=== PATIENT | male | born 1935 | race Caucasian/White ===

== ENCOUNTER → 2023-09-24 10:01 | Outpatient (REF) | payer OTHER, SELFPAY | LOC: HWRCS 10:01 | PROVIDERS: ATTENDING PHYSICIAN Internal Medicine | DX: I10 Essential (primary) hypertension (principal); I25.810 Atherosclerosis of coronary artery bypass graft(s) without angina pectoris; R01.1 Cardiac murmur, unspecified | CPT/HCPCS: 93306 ==

== ENCOUNTER 2024-02-20 15:39 | Inpatient (IN) | payer OTHER, SELFPAY ==
[2024-02-20] VITALS (13 sets, daily range): BP systolic 84–130; BP diastolic 51–75; BMI 26.5
--- NOTE | 2024-02-20 11:08 | ED.GENMED ---
History of Present Illness
General
Chief Complaint: Fever
Source: family
Exam Limitations: dementia
Time Seen by Provider: 02/20/24 10:53
History of Present Illness
History of Present Illness:
88yoM with a history of coronary artery disease, prostate cancer, remote history of colon cancer s/p colectomy with ileostomy, and dementia presenting with his family for evaluation of altered mental status. Patient was visiting his son 1 month ago
in [place]. He was seen at a hospital in [place] and was diagnosed with COVID at that time. During his hospitalization, a Alcocer catheter was placed for urinary retention. The catheter has been in place since that time. He was seen by urology
(Dr. Genao) yesterday and had his Alcocer catheter exchanged. Family states that he started to have nasal congestion yesterday evening as well as several episodes of shaking. Patient also seemed less responsive and more fatigued than usual.
Family also reports that he has been having bleeding from his penis since his catheter was exchanged. Temperature is 100.5 on arrival.
Past History
Past History
ED Past Medical History: CAD, Cancer (Bowel), GERD, HTN, Hypercholesterolemia, DE and Other (Left foot drop, lumbar DJD, SBO, Kidney stones, Ulcerative colitis then CA)
ED Past Surgical History: Bowel resection (Colon removed with ileostomy), Cardiac (CABG, PTCA with stents) and Other (Total colectomy due to ulcerative colitis)
Social History
Tobacco: Former smoker
Alcohol: None
Drug: None
Personal:
Living: with family
Employment: Retired
Family History
Family History: Other (Noncontributory)
Phy Exam
Physical Exam
Physical Exam:
Appears fatigued, keeps eye closed throughout majority of exam, non-toxic
General Physical Exam
General Presentation: no apparent distress
General Skin: warm and dry
General Habitus: elderly
ENT Exam
ENT Exam: normocephalic
Cardiovascular Exam
Cardiovascular Exam: regular rate/rhythm
Pulmonary Exam
Pulmonary Exam: lungs clear, no respiratory distress, no crackles and no wheezing
Gastrointestinal Exam
Gastrointestinal Exam: non tender, soft and non distended
External Findings: ileostomy
Genitourinary Exam Male
Exam Male: other (Alcocer catheter in place draining dark yellow urine. Small amount of bleeding noted at urethral meatus. )
Neurological Exam
Neurological Exam: alert and other (Oriented to person only)
[place] Coma Scale
Eye Opening: Spontaneous
Verbal Response: Confused
Motor Response: Obeys Commands
GCS Total Score: 14
Skin Exam
Skin Exam: normal color and warm/dry
Course
Orders/Labs/Results
Orders:
Orders
02/20/24 11:12
Electrocardiogram (*1) Urgent
Reason for Study: Fatigue / Weakness
EKG- Treatment ONCE
02/20/24 11:13
0.9% Sodium Chloride 500 ml [Nss] 500 ml IV BOLUS
CR Chest - 2 Views Urgent
Comment:
Reason For Exam: Fever
02/20/24 11:20
Complete Blood Count/With Diff Urgent
Lactate Level [Lactic Acid] Urgent
Influenza A+B Rapid Molecular Urgent
DELISA Source: Nasal Swab
Specimen Description:
02/20/24 11:21
Comprehensive Metabolic Panel Urgent
PTT Urgent
Prothrombin Time Urgent
Troponin I Urgent
Blood Culture Routine
DELISA Source: Blood/Venous
Specimen Description:
Blood Culture Urgent
DELISA Source: Blood/Venous
Specimen Description:
02/20/24 11:23
COVID-19 Antigen Urgent
Source: Nasal Swab
Urinalysis Reflex To Culture Urgent
Date Specimen was Collected: 02/20/24
Time Specimen was Collected: 11:21
Urine Microscopic Reflex Cult Urgent
Urine Culture Urgent
DELISA Source: U
Specimen Description:
Date Specimen was Collected: 02/20/24
Time Specimen was Collected: 11:21
02/20/24 12:10
Acetaminophen [Tylenol] 650 mg PO NOW STA
CefTRIAXone [Rocephin] 2,000 mg IV NOW STA
02/20/24 14:02
Troponin I Urgent
02/20/24 14:09
UROLOGY CONSULT Routine
Consulting Provider: Qamar Genao
Was physician already notified: Yes
02/20/24 14:58
Electrocardiogram (*1) Urgent
Reason for Study: Fatigue / Weakness
02/20/24 14:59
EKG- Treatment ONCE
02/20/24 15:02
Admit/Transfer Patient As Directed
Co-Sign Provider:
Level of Care: Inpatient admission
Assign to:: IMU- Intermediate Care
Physician / Group: Hospitalist
Diagnosis: UTI, Pneumonia
Reason for Hospitalization: UTI, pneumonia
Expected length of stay greater than two midnights?: Yes
ELOS- Estimated Length of Stay in days: 3
I certify the patient meets the requirements for IP care: Yes
02/20/24 15:07
PRN Pain Medication Management As Directed
May give lesser potent ordered pain med per pt: Yes
preference::
Protocol:: Medication orders for pain may be administered in a
manner that supports deferring to patient preference
when the pt is:
- Requesting an ordered lesser potent pain medication.
Least to most potent pain medications are defined
as: acetaminophen < NSAID < tramadol < opioids
(morphine, oxycodone, hydromorphone).
- Requesting a lesser dose of the same medication IF
ORDERED.
- Requesting a less intrusive route of administration
if both routes are prescribed by the provider (PO <
IV).
Abnormal Lab Results
1002/20/24 02/20/24
11:20 11:21 11:23
RBC 4.16 L 10^6/uL
(4.70-6.10)
MCH 32.2 H pg
(27.0-31.0)
RDW 15.2 H %
(11.5-14.5)
MPV 10.7 H fL
(7.4-10.4)
Abs Immat Gran (auto) 0.1 H 10^3/uL
(0-0.05)
Absolute Neuts (auto) 9.4 H 10^3/uL
(1.4-6.5)
Absolute Lymphs (auto) 0.3 L 10^3/uL
(1.2-3.4)
Immature Gran % 0.8 H %
(0-0.5)
Neutrophils % 89.7 H %
(42.2-75.2)
Lymphocytes % 3.2 L %
(20.5-51.1)
PT 15.3 H Sec
(11.4-14.6)
Chloride 109 H mmol/L
(98-107)
Carbon Dioxide 21 L mmol/L
(22-30)
BUN 31 H mg/dl
(9-20)
Glucose 124 H mg/dl
(70-99)
Total Bilirubin 1.4 H mg/dl
(0.2-1.3)
Troponin I 0.192 H* ng/ml
Ur Occult Blood Reflex 4+ A
(Negative)
Urine Nitrite (Reflex) Positive A
(Negative)
Urine Bilirubin 1+ A
(Negative)
Leukocyte Esterase Rfl 2+ A
(Negative)
Urine RBC 50-60 A /HPF
(0-2)
Urine WBC (Reflex) 11-15 A /HPF
(0-5)
Urine Bacteria (Reflex) Many A
(Negative)
Urine Albumin (Reflex) 2+ A
(Neg - Trace)
02/20/24
14:02
RBC
MCH
RDW
MPV
Abs Immat Gran (auto)
Absolute Neuts (auto)
Absolute Lymphs (auto)
Immature Gran %
Neutrophils %
Lymphocytes %
PT
Chloride
Carbon Dioxide
BUN
Glucose
Total Bilirubin
Troponin I 0.224 H* ng/ml
Ur Occult Blood Reflex
Urine Nitrite (Reflex)
Urine Bilirubin
Leukocyte Esterase Rfl
Urine RBC
Urine WBC (Reflex)
Urine Bacteria (Reflex)
Urine Albumin (Reflex)
02/20/24 11:20
02/20/24 11:21
Vital Signs
Initial and Last Documented VS:
Initial Vital Signs
Temp Pulse Resp BP Pulse Ox
100.5 F H 82 18 110/61 96
02/20/24 10:44 02/20/24 10:44 02/20/24 10:44 02/20/24 10:44 02/20/24 10:44
Last Documented Vital Signs
Temp Pulse Resp BP Pulse Ox
98.1 F 71 18 109/58 97
02/20/24 17:25 02/20/24 17:00 02/20/24 10:44 02/20/24 17:00 02/20/24 16:00
MDM/Problems Addressed
Differential Diagnosis Includes:
88yoM here with confusion, fatigue, rigors, and fever. Started yesterday after a Alcocer catheter exchange. Hx of dementia. Temp 100.5 on arrival. Remainder of vitals stable. He appears fatigued but is non-toxic. Differential diagnosis includes but is
not limited to: UTI, pyelonephritis, sepsis, pneumonia, viral illness
Initial ED plan: Check septic workup including blood cultures, lactate, COVID/flu swab, UA, and CXR. Tylenol and IV fluid bolus.
*EKG
Interpreted by ED Provider?: Yes
EKG Intrepretation Date: 02/20/24
Heart Rate: 78
Rate: normal
Rhythm: sinus
[place]: normal axis
Interval: normal interval
QRS Pattern: normal QRS
Ischemia: no ischemia
*Critical Care Note
Total Time (30-74mins, 75-104mins- exclusive of procedures): Not Applicable
Update Note
Update Note:
White count normal with left shift noted. Lactate WNL. UA is nitrite positive with 50-60 WBC and many bacteria. Troponin 0.192 although there are no ischemic changes on EKG. CXR also shows pneumonia. Patient given IV Rocephin and admitted for
further management.
ED Attending Note
-
Portions of this chart may have been created with voice recognition software.� Occasional wrong word or��sound alike� substitutions may have occurred due to the inherent limitations of voice recognition software.
Discharge Plan
Departure
Patient Disposition: Admit
Date of Disposition: 02/20/24
Time of Disposition: 13:15
Presentation/result/management discussed w/ accepting MD/DO: Hospitalist
Discharge Problem:
Urinary tract infection, Elevated troponin, Acute encephalopathy
Interventions
Interventions:
*Risk Screen - Suicide Last Done: 02/20/24 10:45
*General Assessment Last Done: 02/20/24 10:45
*Neglect/Abuse Screening Last Done: 02/20/24 10:45
*ED COVID-19 Vaccine History Last Done: 02/20/24 10:58
*Nursing Disposition Last Done: 02/20/24 17:18
ED-Skin Assessment Last Done: 02/20/24 12:36
ED- Pulmonary Assessment Last Done: 02/20/24 17:18
ED- Neurological Assessment Last Done: 02/20/24 10:58
ED- Cardiac Assessment Last Done: 02/20/24 17:18
Discharge Date and Time
Discharge Date/Time: 02/20/24 17:00
[2024-02-20 11:47] LABS: % Basophils 0.5 % (0-2); % Eosinophils 0.1 % (0-6); % Immature Granulocytes 0.8 % (0-0.5); % Lymphocytes 3.2 % (20.5-51.1); % Monocytes 5.7 % (1.7-9.3); % Neutrophils 89.7 % (42.2-75.2); Absolute Basophils 0.1 10^3/uL (0-0.2); Absolute Immature Granulocytes 0.1 10^3/uL (0-0.05); Absolute Lymphocytes 0.3 10^3/uL (1.2-3.4); Absolute Monocytes 0.6 10^3/uL (0.1-0.6); Absolute Neutrophils 9.4 10^3/uL (1.4-6.5); Hemoglobin 13.4 g/dL (13.0-18.0); Mean Corp Hgb Conc. 34.4 g/dL (33.0-37.0); Mean Corpuscular Hgb 32.2 pg (27.0-31.0); Mean Corpuscular Volume 93.8 fL (80.0-94.0); Mean Platelet Volume 10.7 fL (7.4-10.4); Nucleated Red Blood Cells % 0 % (-); Platelet Count 143 10^3/uL (130-400); Red Blood Cell Count 4.16 10^6/uL (4.70-6.10); Red Cell Dist. Width 15.2 % (11.5-14.5); White Blood Cell Count 10.4 10^3/uL (4.8-10.8)
[2024-02-20] MEDS: NSS 500 IV ×2 (11:47→20:17)
[2024-02-20 12:01] LABS: ALT (SGPT) 17 U/L (0-50); AST (SGOT) 28 U/L (17-59); Albumin 3.9 g/dl (3.5-5.0); Alkaline Phosphatase 46 U/L (38-126); Blood Urea Nitrogen 31 mg/dl (9-20); Calcium 9.4 mg/dl (8.4-10.2); Carbon Dioxide 21 mmol/L (22-30); Chloride 109 mmol/L (98-107); Estimated Creatinine Clearance 34 ml/min; Glucose 124 mg/dl (70-99); Potassium 4.7 mmol/L (3.5-5.1); Sodium 142 mmol/L (135-145); Total Bilirubin 1.4 mg/dl (0.2-1.3); Total Protein 6.8 g/dl (6.3-8.2); eGFR 52.84
[2024-02-20 12:01] LABS: Lactic Acid 1.4 mmol/L (0.7-2.0)
[2024-02-20 12:02] LABS: PT 15.3 Sec (11.4-14.6)
[2024-02-20 12:03] LABS: Urine Albumin 2+ (Neg - Trace); Urine Bilirubin 1+ (Negative); Urine Character Cloudy (Clear); Urine Glucose Negative (Negative); Urine Ketone Negative (Negative); Urine Leukocyte 2+ (Negative); Urine Nitrite Positive (Negative); Urine Occult Blood 4+ (Negative); Urine Urobilinogen Negative (Neg - 1+)
[2024-02-20 12:03] LABS: APTT 28.9 Sec (23.4-35.0)
[2024-02-20 12:12] LABS: Urine Bacteria Many (Negative); Urine Red Blood Cell 50-60 /HPF (0-2)
[2024-02-20 12:17] LABS: Troponin I 0.192 ng/ml
[2024-02-20 12:24] LABS: COVID-19 Antigen Negative (Negative)
[2024-02-20] MEDS: TYLENOL 650 MG PO (12:28)
[2024-02-20] MEDS: ROCEPHIN 2000 MG IV (12:29)
[2024-02-20 14:57] LABS: Troponin I 0.224 ng/ml
--- NOTE | 2024-02-20 16:42 | W.PN.URO.CBU ---
Today's Communication / Plan
-
per hospitalist
Assessment / Plan
-
urosepsis melvin ro check blood urine cxs broad spectrum iv abs until can target pathogen
Diagnosis
-
Date of Service: February 20, 2024
-
Patient Diagnosis:probable urosepsis in pt with urinary retention and prostae cance and bph had instrumentationyestrday fevr confusion 12 hours later
Post Op Day:
Subjective
-
feels better now
Objective
-
Vital Signs
Temp Pulse Resp BP Pulse Ox
98.7 F 63 18 110/58 96
02/20/24 14:04 02/20/24 15:56 02/20/24 10:44 02/20/24 15:56 02/20/24 15:56
Laboratory Results
02/20/24 11:20
02/20/24 11:21
Review of Systems
-
Unable to obtain full review of systems at this time due to: Dementia
Constitutional: Fever, Fatigue, Night Sweats and Chills
: Difficulty Voiding and Bleeding
Physical Exam
-
General - well developed, well nourished, no acute distress
Chest - clear bilaterally
Abdomen - soft, non-tender, positive bowel sounds, no CVAT, no incisional pain or distentionstoma pink
Genitalia - normal
Rectal -ove sewn
Skin - warm & dry with no rash
Neuro - AOx3, no motor deficits
Extremities - no clubbing, no cyanosis, no edema
Incision - clean, dry
Dressing - clean, dry, intact
Care Review
Data Reviewed
Discussed with: Hospitalist, Nursing and Family
--- NOTE | 2024-02-20 16:54 | HPS.HSE ---
Addendum entered and electronically signed by Luis Angel Calles MD 02/20/24 21:41:
Attending Addendum-
I performed a history and physical exam of the patient and discussed his management with the resident. I reviewed the resident's note and agree with the documented findings and plan of care CC/HPI- Patient presents with CIMS fatigue fevers and
chills. Had Ro exchange the day prior. Patient is a poor historian due to dementia and dysarthria. Seen with present. States he is not himself and more fatigued than usual. [place] noted blood @ peinile opening. Full 12 point ROS reviewed and
negative except as documented Exam- vitals reviewed in EMR GEN- NAD heart RRR lungs LLL rhonchi abd soft ostomy present LE no edema ro in place with bloody urine.
Plan:
# Sepsis secondary to UTI after recent Ro exchange and CAP/LLL
- cont Rocephin and doxy - dual coverage
- check lactate
- fluid resuscitation 30ml/kg maintain MAP>65 bolus x 1
- cont IVF
- blood cx urine cx
- admit to IMU
# Acute Delirium
- from sepsis
- treat infection
- monitor closely
# NIMI
- EKG personally reviewed and compared to previous- no ST changes occasional PVCs
- from sepsis
- trend troponin
- recent echo 10/11 ef 60-65%
# Urinary retention secondary to BPH
- cont flomax
- cont Ro for now
- TOV when more ambulatory
- uro on board
# Hematuria
- uro on board
- cont to trend h and h
# Severe Alzheimer Dementia
- cont exelon
- speech eval
# Chrons with colostomy
- ostomy care
# CAD-
- CABG x 2 + stents
- cont asa for now
# H/O Prostate ca
- cont bicalutamide
# Gout
- cont allopurinol
# CKD 3a
- @ baseline 1.3
- repeat BMP in am
- avoid NT agents
# recent covid
- monitor for LCS
CODE- limited DNI only
Dispo eventual DC home with - would benefit from unit/LTC
Time spent coordinating care, review of plan of care with resident, personally reviewed previous records in EMR, med rec, labs, radiology, d/w nursing, family/ �- 79 mins
Original Note:
Family Physician
-
[facility] Physician: [facility]
Chief Complaint
-
Altered mental status, fever, fatigue
History of Present Illness
88 year old male with history of advanced dementia, CAD s/p CABG x 2 (7 stents), prostate cancer, CKD, crohn's, colon cancer s/p colectomy+ileostomy, who presents to the ED with altered mental status, fever, and rigors.
Yesterday, patient had a ro exchanged by Dr. Genao of urology, with noted blood around the urethra from trauma of ro insertion. Patient is limited in speech by dementia, but per , he complained about feeling unwell yesterday evening.
Today, she noted he was more sleepy than usual, and did not respond to conversation or direction. She noted 'fever' to 99.6, and called EMS.
Of note, patient was away at [place] with his family for a few weeks, returned a few days ago. While he was away, he was hospitalized for COVID (whole family get sick), and had urinary retention for which ro was inserted. He pulled his ro out
(with significant trama bruising to penis) and was transferred to where a new ro was successfully inserted. This ro was exchanged by Dr. Genao yesterday after being in for 30 days.
Prior to his recent hospitalization for COVID, he ambulated independently, but has used a walker since he was discharged.
reports runny nose and cough initially productive of greenish sputum, but now sputum is clear.
On arrival to the ED, he was febrile 100.5, but otherwise hemodynamically stable. Ceftriaxone was started in the ED and Tylenol was administered. While in the ED, his BP dropped to 84/51.
Medical History
Past Medical History
Past Medical History: Reports CAD, Cancer (prostate, colon), Dementia and Other (CKD, urinary retention, chronic ro, crohn's, )
Past Surgical History: Reports Bowel Resection (colectomy) and Other (hernia repair, ileostomy, CABG x 2)
Social History
Unable to obtain full social history at this time due to: Dementia
Tobacco: Former Smoker
Alcohol: None
Drug: None
Personal:
Living: With Family
Employment: Retired
Family History
Family History: Not pertinent
Allergies / Home Medications
Allergies reflects when Allergies were last updated in [facility].
Home Medications with original date entered in [facility]
Allergy/Medication List:
Allergies
Allergy/AdvReac Type Severity Reaction Status Date / Time
latex Allergy Itching Verified 02/20/24 10:45
mesalamine [From Asacol] Allergy severe Verified 02/20/24 10:45
stomach
pain
morphine Allergy Hallucinati Verified 02/20/24 10:45
ons
oxycodone HCl [From Percocet] Allergy NIGHTMARE Verified 02/20/24 10:45
DREAMS
Penicillins Allergy Rash Verified 02/20/24 10:45
pravastatin sodium Allergy INCREASED Verified 02/20/24 10:45
[From Pravachol] LFT
telithromycin [From KETEK] Allergy led to Verified 02/20/24 10:45
ulcerative
colitis
Home Medications
aspirin 81 mg tablet,delayed release 81 mg PO DAILY Blood Clot Prevention/Tx 10/19/09
tamsulosin 0.4 mg capsule 0.8 mg PO HS Urinary Issue 11/15/18
allopurinol 300 mg tablet 300 mg PO DAILY gout 02/20/24
bicalutamide 50 mg tablet 50 mg PO DAILY prostate cancer 02/20/24
rivastigmine 9.5 mg/24 hour transdermal patch 9.5 mg transdermal HS memory/cognition 02/20/24
Review of Systems
-
Unable to obtain full review of systems at this time due to: Dementia
History Source: Family
Constitutional: Reports Fever
EENT: Reports Runny Nose
Respiratory: Reports Cough
Psych: Reports Dementia
Physical Exam
Vital Signs
Vital Signs
Temp Pulse Resp BP Pulse Ox
98.7 F 63 18 110/58 96
02/20/24 14:04 02/20/24 15:56 02/20/24 10:44 02/20/24 15:56 02/20/24 15:56
Physical Exam
General: Well Developed, No Apparent Distress and Comfortable
HEENT: NormoCephalic and Anicteric; No Moist mucous membranes
Respiratory: Clear and Non Labored Respirations; No Wheezes, Rales, Rhonchi or Crackles
Cardiac: S1/S2 and Regular Rhythm; No Murmur, Rub or Calf Tenderness
GI: Soft, Non Tender, Non Distended, Normal Bowel Sounds and Ostomy
Genito-urinary: Bloody Urine and Ro
Musculoskeletal: No Clubbing, No Cyanosis, Edema, Left Lower Extremity and Edema, Right Lower Extremity
Skin: Warm and Dry
Neuro: Awake, Alert and Oriented (to person only )
Psych: Calm and Confused
Laboratory Results
-
02/20/24 11:20
02/20/24 11:21
Laboratory Results
PT 15.3 Sec (11.4-14.6) H 02/20/24 11:21
INR 1.20 02/20/24 11:21
APTT 28.9 Sec (23.4-35.0) 02/20/24 11:21
Lactic Acid 1.4 mmol/L (0.7-2.0) 02/20/24 11:20
Total Bilirubin 1.4 mg/dl (0.2-1.3) H 02/20/24 11:21
AST 28 U/L (17-59) 02/20/24 11:21
ALT 17 U/L (0-50) 02/20/24 11:21
Alkaline Phosphatase 46 U/L (38-126) 02/20/24 11:21
Troponin I 0.224 ng/ml H* 02/20/24 14:02
Impression/Plan
-
IMPRESSION: 88 year old male with advanced dementia, CAD s/p CABG x 2 (7 stents), prostate cancer, CKD, crohn's, colon cancer s/p colectomy+ileostomy who presents with sepsis.
PLAN:
Severe sepsis:
Secondary to catheter-associated UTI and community acquired pneumonia
WBC 10.4 with left shift. Febrile 100.5. Elevated troponin with normal EKG. Hypotension.
CXR: LLL pneumonia
Unrinalysis positive for UTI, chronic ro use. Recent ro exchange
Lactate 1.4
- IVF resuscitation
- Continue Ceftriaxone from ED. Add Doxycycline.
- Blood culture x 2 and urine culture pending
- Admit to IMU
Community acquired pneumonia:
- Continue Ceftriaxone and Doxycycline
Catheter associated UTI:
Urinalysis positive for UTI
- Chronic ro for urinary retention
- New ro exchange one day [employer]
- Continue Ceftriaxone. No need to replace new ro
- Appreciate urology recs
- Urinary Cx pending
Toxic metabolic encephalopathy:
Altered mental status secondary to severe sepsis
- Treat as above
- Monitor mental status
Non-ischemic myocardial injury:
Elevated troponin with normal EKG
Trops 0.192 -> 0.224
- Repeat EKG
- Trend trops
Urinary retention:
Hx of prostate cancer
- Chronic ro
- Continue ro
- Continue Tamsulosin
CAD:
Status post CABG x 2
- Continue Asp 81mg
CKD:
- Avoid nephrotoxic agents
Dementia:
Advanced
- Continue Rivastigmine
Prostate Cancer:
- Continue Bicalutamide
Hx of gout:
- Continue Allopurinol
DVT PPX: Heparin SQ
Code status: Limited: Do not Intubate.
[2024-02-20] MEDS: VIBRAMYCIN 100 MG PO (20:59)
[2024-02-20] MEDS: HEPARIN 5000 UNITS SC (20:59)
[2024-02-20] MEDS: FLOMAX PO ×2 (20:59→21:23)
[2024-02-20] MEDS: MUCINEX 600 MG PO (20:59)
[2024-02-20] MEDS: EXELON PATCH 9.5 MG TRANSDERM (20:59)
[2024-02-20 22:24] LABS: Troponin I 0.164 ng/ml
[2024-02-20] MEDS: NSS 1000 IV (22:36)
[2024-02-21] VITALS (10 sets, daily range): BP systolic 98–138; BP diastolic 51–102; PULSE 69–70; O2SAT 95–96
[2024-02-21 04:06] LABS: % Basophils 0.8 % (0-2); % Eosinophils 0.7 % (0-6); % Immature Granulocytes 0.7 % (0-0.5); % Lymphocytes 8.3 % (20.5-51.1); % Monocytes 10.5 % (1.7-9.3); Absolute Basophils 0.1 10^3/uL (0-0.2); Absolute Lymphocytes 0.5 10^3/uL (1.2-3.4); Absolute Monocytes 0.6 10^3/uL (0.1-0.6); Absolute Neutrophils 4.7 10^3/uL (1.4-6.5); Hematocrit 34.6 % (39.0-52.0); Mean Corp Hgb Conc. 34.7 g/dL (33.0-37.0); Mean Corpuscular Hgb 32.3 pg (27.0-31.0); Mean Corpuscular Volume 93.3 fL (80.0-94.0); Mean Platelet Volume 10.7 fL (7.4-10.4); Nucleated Red Blood Cells % 0 % (-); Platelet Count 123 10^3/uL (130-400); Red Blood Cell Count 3.71 10^6/uL (4.70-6.10); Red Cell Dist. Width 15.1 % (11.5-14.5); White Blood Cell Count 5.9 10^3/uL (4.8-10.8)
[2024-02-21 04:16] LABS: ALT (SGPT) 19 U/L (0-50); AST (SGOT) 30 U/L (17-59); Albumin 3.1 g/dl (3.5-5.0); Alkaline Phosphatase 48 U/L (38-126); Blood Urea Nitrogen 27 mg/dl (9-20); Calcium 8.9 mg/dl (8.4-10.2); Carbon Dioxide 18 mmol/L (22-30); Chloride 111 mmol/L (98-107); Estimated Creatinine Clearance 37 ml/min; Glucose 107 mg/dl (70-99); Potassium 4.1 mmol/L (3.5-5.1); Sodium 140 mmol/L (135-145); Total Bilirubin 0.6 mg/dl (0.2-1.3); Total Protein 5.7 g/dl (6.3-8.2); eGFR 58.17
--- NOTE | 2024-02-21 06:03 | PTCARENOTE ---
No acute events overnight. Refused evening flomax despite family and nurse attempts to convince and educate. Remains on IVF. afebrile. Folely draining anabel blood tinged urine.
[2024-02-21] MEDS: HEPARIN 5000 UNITS SC ×2 (08:09→21:44)
[2024-02-21] MEDS: NSS 1000 IV ×2 (08:09→21:44)
[2024-02-21] MEDS: MUCINEX PO ×3 (08:09→21:47)
[2024-02-21] MEDS: VIBRAMYCIN 100 MG PO (08:09)
[2024-02-21] MEDS: CASODEX PO ×2 (08:09→08:24)
[2024-02-21] MEDS: ASPIR LOW (ENTERIC COATED) PO ×2 (08:09→08:24)
[2024-02-21] MEDS: ZYLOPRIM 300 MG PO (08:09)
--- NOTE | 2024-02-21 08:31 | VNURNOTE ---
Chart reviewed. Patient is current with [facility] nursing, PT, OT, CHANGE CONTROL MANAGER. Will continue to follow hospital course and DC plans.
--- NOTE | 2024-02-21 08:55 | W.PN.HOSP.TC ---
Addendum entered and electronically signed by Luis Angel Calles MD 02/21/24 21:37:
Attending Addendum-
I saw and evaluated the patient. I reviewed the resident�s note and agree with findings and plan as documented in the resident�s note. Sub: See without present. 'why are you asking me questions? who are you?' .seem agitated. Full 12 point ROS
reviewed and negative except as documented Exam- vitals reviewed in EMR GEN- NAD heart RRR lungs LLL rhonchi abd soft ostomy present LE no edema ro in place with dark urine.
Plan:
# Sepsis secondary to UTI after recent Ro exchange and CAP/LLL
- cont Rocephin and doxy - dual coverage
- lactate wnl
- cont IVF
- blood cx-P
- urine cx- GNB awaiting speciation
- transfer to tele
# Acute Delirium
- seems to be improving
- from sepsis
- treat infection
- monitor closely
# NIMI
- EKG personally reviewed and compared to previous- no ST changes occasional PVCs
- from sepsis
- troponin trending down
- recent echo 10/11 ef 60-65%
# Urinary retention secondary to BPH
- cont flomax
- cont Ro for now
- uro on board
# Hematuria
- seems to be resolving
- uro on board
- cont to trend h and h
# Dysphagia
- check VFSS
- speech therapy
# Severe Alzheimer Dementia
- cont exelon
- speech eval- appreciate input
# Chrons with colostomy
- ostomy care
# CAD-
- CABG x 2 + stents
- cont asa for now
# H/O Prostate ca
- cont bicalutamide
# Gout
- cont allopurinol
# CKD 3a
- @ baseline 1.3
- repeat BMP in am
- avoid NT agents
# recent covid
- monitor for LCS
CODE- limited DNI only
Dispo- eventual DC home with - would benefit from unit/LTC - transfer to tele
Time spent coordinating care, review of plan of care with resident, personally reviewed previous records in EMR, med rec, labs, radiology, d/w nursing, family �- 55 mins
Original Note:
Today's Communication/Plan
-
Continue IV abx
Assessment / Plan
Assessment / Plan
IMPRESSION: 88 year old male with advanced dementia, CAD s/p CABG x 2 (7 stents), prostate cancer, CKD, crohn's, colon cancer s/p colectomy+ileostomy who presents with sepsis.
PLAN:
Severe sepsis:
Secondary to UTI and community acquired pneumonia
WBC 10.4 with left shift. Febrile 100.5 on arrival. Elevated troponin with normal EKG. Hypotension.
CXR: LLL pneumonia
Urinalysis positive for UTI, chronic ro use. Recent ro exchange
Lactate 1.4
- IVF resuscitation
- Continue Ceftriaxone and Doxycycline. Dual coverage (abx day 2)
- Blood culture x 2 and urine culture pending
- Appreciate urology recs - no need to exchange new ro
Toxic metabolic encephalopathy:
Altered mental status secondary to severe sepsis
- Treat as above
- Monitor mental status
Non-ischemic myocardial injury:
Elevated troponin with normal EKG
Trops 0.192 peaked at 0.224 -> 0.164
- Repeat EKG
- Trend trops
Urinary retention:
Hx of prostate cancer. Urinary retention with chronic ro
- Continue ro
- hematuria resolved
- Continue Tamsulosin
CAD:
Status post CABG x 2
- Continue Asp 81mg
CKD:
- Avoid nephrotoxic agents
Dementia:
Advanced
- Continue Rivastigmine
- Refusing some PO meds. Will convert to IV as feasible
- ST eval: - IDDS 6
Prostate Cancer:
- Continue Bicalutamide
Hx of gout:
- Continue Allopurinol
DVT PPX: Heparin SQ
Code status: Limited: Do not Intubate.
Anticipated Discharge: Within 24 hours
Subjective/Interval History
-
Date of Service: February 21, 2024
Refusing some PO meds.
No acute events overnight
Objective Data
-
Labs:
Laboratory Results
02/21/24
03:28
WBC 5.9
Hgb 12.0 L
Hct 34.6 L
Plt Count 123 L
Sodium 140
Potassium 4.1
Chloride 111 H
Carbon Dioxide 18 L
BUN 27 H
Creatinine 1.2
Glucose 107 H
Calcium 8.9
Total Bilirubin 0.6
AST 30
ALT 19
Alkaline Phosphatase 48
Vital Signs:
Vital Signs
Temp Pulse Resp BP Pulse Ox
98.1 F 71 18 119/61 95
02/21/24 07:10 02/21/24 06:05 02/21/24 06:05 02/21/24 06:05 02/21/24 06:05
I&O
02/20/24 02/21/24 02/22/24
06:59 06:59 06:59
Intake Total 2180 / 2180
Output Total 675 / 675
Balance 1505 / 1505
Review of Systems
-
Unable to obtain full review of systems at this time due to: Dementia
Physical Exam
-
General: No Apparent Distress and Comfortable
HEENT: Normocephalic, Atraumatic and Moist Mucous Membranes
Respiratory: Clear to Auscultation and Non Labored Respirations; Negative Wheezes, Rales, Rhonchi or Crackles
Cardiac: Regular Rhythm and S1/S2; Negative Murmur, Rub or Calf Tenderness
GI: Soft, Nontender, Nondistended, Normal Bowel Sounds and Ostomy
Genito-urinary: Ro (trace blood around urethral meatus) and Other (dark urine)
Musculoskeletal: Edema, Right Lower Extrem and Edema, Left Lower Extrem
Skin: Warm and Dry
Neuro: Awake, Alert and Oriented (to person only)
Psych: Calm
--- NOTE | 2024-02-21 10:40 | WOUNDNOTE ---
[facility] RN note: Patient admitted with UTI, pneumonia. Patient lives with his .
See H&P for complete history.
PMH: dementia, Alcocer, urinary retention secondary to BPH, Chron's with colostomy, CABG, gout.
Wound Location and type/assessment: Patient admitted with: mild red intact sacrum, L lower buttocks dull red spot suspect scar from previous skin breakdown. Ileostomy appliance intact. Soft stool in pouch. Skin on heels intact. Patient has his
[place] 1 1/2 inch 2 piece appliances with him.
Appetite: on IDDSI 6 soft and bite sized lower cholesterol diet, thin liquids.
Pressure redistribution devices in place: Centrella Max air bed. Patient can turn self slowly in bed.
Plan: Protective silicone border foam applied to sacrum and L ischium. Patient turned to R semi side lying position. Heel elevation maintained with pillow. Nursing can assist patient with routine ostomy care/pouch changes.
Care plan to be updated and will sign off, call with questions.
[2024-02-21] MEDS: ROCEPHIN 2000 MG IV (11:25)
[2024-02-21] MEDS: STERILE WATER FOR INJECTION 20 ML IV (11:25)
--- NOTE | 2024-02-21 11:32 | PTOTSP ---
Dysphagia Evaluation
Patient presents with signs concerning for mild oral and possible pharyngeal dysphagia. Risk factors include advanced dementia and GERD. Patient with current PNA and possible signs of aspiration with thin liquids and solids. Video swallow study
warranted to objectively assess swallowing function.
Recommend:
1. IDDSI Level 6 Soft/Bite Sized, Thin Liquids
2. Medications - non-oral and/or crushed and mixed in pudding or yogurt
3. Full supervision/assistance, alternate sips/bites, check for oral residue, remain upright for 30 minutes after PO as a reflux precaution
4. Oral care 3x daily
5. Video swallow study
--- NOTE | 2024-02-21 12:25 | PTCARENOTE ---
Rec'd pt this AM. very confused, only oriented to self. refused all PO meds. Speech evaluated. pt on modified diet at this time. Walked in [place] with PT with rolling walker. updated via telephone. currently downgraded to tele
--- NOTE | 2024-02-21 12:45 | CM ---
Addendum entered by Jacinta Curtis RN 02/22/24 09:08:
pcp Adrianne Mullins [phone] Requested [facility]
Original Note:
Pt is alert confused patient . He lives with his [place]. His house is 2 story with 4 steps into home and bed and bathroom on 1 st floor. He is assisted with all ADLs by [address] drive and he is independent. He has a ileostomy and chronic Alcocer.
Current with [facility] . believes he needs SNF at hi.
He does not use his CPAP from [facility] .
[facility] with [facility] .He has used [facility] for [facility]F in past.
[facility] and [facility] on [address]
PCP Dr chet mario MD will call back with name.
PLAN Will need PT OT eval . Possible SNF will need auth
--- NOTE | 2024-02-21 14:57 | PTOTSP ---
Video Swallow Study
Summary: Patient presents with mild oral/pharyngeal dysphagia. See patient care note for full details of penetration/aspiration and physiology.
Recommend:
1. IDDSI Level 6 Soft/Bite Sized, Thin Liquids
2. Medications - non-oral and/or crushed and mixed in pudding or yogurt
3. Full supervision/assistance, alternate sips/bites, check for oral residue, remain upright for 30 minutes after PO as a reflux precaution
4. Oral care 3x daily
5. Dysphagia therapy follow up at the acute care level. Advance diet if/when appropriate.
[2024-02-21] MEDS: FLOMAX 0.8 MG PO (21:45)
[2024-02-21] MEDS: EXELON PATCH 9.5 MG TRANSDERM (21:45)
[2024-02-21] MEDS: VIBRAMYCIN 260 MG IV (21:47)
--- NOTE | 2024-02-21 23:05 | PTCARENOTE ---
Pt AAO to self. Pt took medication well in applesauce out of capsule in one bite. Pt would not take other medication in second bite. Pt being transferred to [facility]. Report called to Nurse on floor.
[2024-02-22] VITALS (8 sets, daily range): BP systolic 108–150; BP diastolic 62–83; PULSE 64; O2SAT 96
[2024-02-22 07:31] LABS: Hematocrit 32.7 % (39.0-52.0); Hemoglobin 11.4 g/dL (13.0-18.0); Mean Corp Hgb Conc. 34.9 g/dL (33.0-37.0); Mean Corpuscular Hgb 33.5 pg (27.0-31.0); Mean Corpuscular Volume 96.2 fL (80.0-94.0); Platelet Count 115 10^3/uL (130-400); Red Cell Dist. Width 14.9 % (11.5-14.5); White Blood Cell Count 5.5 10^3/uL (4.8-10.8)
[2024-02-22 07:54] LABS: Blood Urea Nitrogen 20 mg/dl (9-20); Calcium 8.4 mg/dl (8.4-10.2); Carbon Dioxide 20 mmol/L (22-30); Chloride 109 mmol/L (98-107); Estimated Creatinine Clearance 40 ml/min; Glucose 91 mg/dl (70-99); Potassium 3.7 mmol/L (3.5-5.1); Sodium 139 mmol/L (135-145); eGFR > 60.00
[2024-02-22] MEDS: HEPARIN 5000 UNITS SC ×2 (08:29→21:16)
[2024-02-22] MEDS: CASODEX 50 MG PO (08:29)
[2024-02-22] MEDS: NSS 1000 IV (08:29)
[2024-02-22] MEDS: ASPIR LOW (ENTERIC COATED) 81 MG PO (08:29)
[2024-02-22] MEDS: MUCINEX 600 MG PO ×2 (08:30→21:16)
[2024-02-22] MEDS: VIBRAMYCIN 260 MG IV (08:32)
[2024-02-22] MEDS: ZYLOPRIM 300 MG PO (08:43)
--- NOTE | 2024-02-22 08:51 | W.PN.URO.CBU ---
Today's Communication / Plan
-
NO VOIDING TRIAL DURING THIS HOSPITALIZATION LEAVE RO
Assessment / Plan
-
urosepsis leav e ro do not remove no voiding trial home when edical objectives met per hospitalist
Diagnosis
-
Date of Service: February 22, 2024
-
Patient Diagnosis:
Post Op Day:
Patient Diagnosis:probable urosepsis in pt with urinary retention and prostae cance and bph had instrumentationyestrday fevr confusion 12 hours later
Post Op Day:
Subjective
-
dementia but appears baseline
Objective
-
Vital Signs
Temp Pulse Resp BP Pulse Ox
97.9 F 61 18 128/62 96
02/22/24 07:30 02/22/24 07:30 02/22/24 07:30 02/22/24 07:30 02/22/24 07:30
Intake and Output
02/21/24 02/22/24 02/23/24
06:59 06:59 06:59
Intake Total 2180 / 2180 60 / 60
Output Total 675 / 675 1725 / 1725
Balance 1505 / 1505 -1665 / -1665
Intake:
Oral fluids 480 / 480 60 / 60
IV fluids (Total) 1700 / 1700
Output:
Liquid stool amount 300 / 300
Colostomy 300 / 300
Urine, Ro 475 / 475 1325 / 1325
Urine, Voided 200 / 200 100 / 100
Laboratory Results
02/22/24 06:41
02/22/24 06:41
Review of Systems
-
Unable to obtain full review of systems at this time due to: Dementia
: Difficulty Voiding
Physical Exam
-
General - well developed, well nourished, no acute distress
Chest - clear bilaterally
Abdomen - soft, non-tender, positive bowel sounds, no CVAT, no incisional pain or distention
Genitalia - normal
Rectal - normal
Skin - warm & dry with no rash
Neuro - AOx3, no motor deficits
Extremities - no clubbing, no cyanosis, no edema
Incision - clean, dry
Dressing - clean, dry, intact
Care Review
Data Reviewed
Discussed with: Nursing
--- NOTE | 2024-02-22 09:51 | W.PN.HOSP.TC ---
Addendum entered and electronically signed by Luis Angel Calles MD 02/22/24 22:23:
Attending Addendum-
I saw and evaluated the patient. I reviewed the resident�s note and agree with findings and plan as documented in the resident�s note. Sub: See with sons present. Not making sense. Tangential. No complaints. Full 12 point ROS reviewed and negative
except as documented Exam- vitals reviewed in EMR GEN- NAD heart RRR lungs fine crackles at bases abd soft ostomy present LE no edema ro in place with dark urine. AAO x 1
Plan:
# Sepsis secondary to UTI after recent Ro exchange and CAP/LLL
- Rocephin and doxy--> Levaquin 02/21
- cont IVF
- blood cx-NGTD
- urine cx- kleb and proteus sens to levaquin
- cont care on tele
# Acute Delirium
- resolved, back to baseline per family
- from sepsis
- monitor closely
# NIMI
- EKG personally reviewed and compared to previous- no ST changes occasional PVCs
- from sepsis
- recent echo 10/11 ef 60-65%
# Urinary retention secondary to BPH
- cont flomax
- cont Ro TOV as OP with urology
- uro on board
# Hematuria
- resolved
- uro on board
- cont to trend h and h
# Dysphagia
- check VFSS
- speech therapy
# Severe Alzheimer Dementia
- cont exelon
- speech eval- appreciate input
# Dysphagia
- mech altered diet
# Chrons with colostomy
- cont ostomy care
# CAD-
- CABG x 2 + stents
- cont asa
# H/O Prostate ca
- cont bicalutamide
# Gout
- cont allopurinol
# CKD 3a
- @ baseline 1.3
- repeat BMP in am
- avoid NT agents
# Recent Covid
- monitor for LCS
CODE- limited DNI only
Dispo- DC to SNF ([facility]) when able
Time spent coordinating care, review of plan of care with resident, personally reviewed previous records in EMR, med rec, labs, radiology, d/w nursing, CM, sons �- 58 mins
Original Note:
Today's Communication/Plan
-
Continue IV abx
Assessment / Plan
Assessment / Plan
IMPRESSION: 88 year old male with advanced dementia, CAD s/p CABG x 2 (7 stents), prostate cancer, CKD, crohn's, colon cancer s/p colectomy+ileostomy who presents with sepsis.
PLAN:
Severe sepsis:
Secondary to UTI and community acquired pneumonia
WBC 10.4 with left shift. Febrile 100.5 on arrival. Elevated troponin with normal EKG. Hypotension.
CXR: LLL pneumonia
Urinalysis positive for UTI, chronic ro use. Recent ro exchange
Lactate 1.4
- Continue maintenance IVF
- Continue Ceftriaxone and Doxycycline. Dual coverage (abx day 3)
- Blood culture x 2 no growth, urine culture positive for gram neg bacilli
- Appreciate urology recs - no need to exchange new ro
Toxic metabolic encephalopathy:
Altered mental status secondary to severe sepsis
- Treat as above
- Appears to be at baseline mental status today.
Non-ischemic myocardial injury:
Elevated troponin with normal EKG
Trops 0.192 peaked at 0.224 -> 0.164
- Resolved
Urinary retention:
Hx of prostate cancer. Urinary retention with chronic ro
- Continue ro
- hematuria resolved
- Continue Tamsulosin
CAD:
Status post CABG x 2
- Continue Asp 81mg
CKD:
- Avoid nephrotoxic agents
Dementia:
Advanced
- Continue Rivastigmine
- Refusing some PO meds. Will convert oral meds to IV as feasible
- ST eval: - IDDS 6 with asp precautions
Prostate Cancer:
- Continue Bicalutamide
Hx of gout:
- Continue Allopurinol
DVT PPX: Heparin SQ
Code status: Limited: Do not Intubate.
Anticipated Discharge: Today
Subjective/Interval History
-
Date of Service: February 22, 2024
Refusing some PO meds
No acute events overnight
Objective Data
-
Labs:
Laboratory Results
02/22/24
06:41
WBC 5.5
Hgb 11.4 L
Hct 32.7 L
Plt Count 115 L
Sodium 139
Potassium 3.7
Chloride 109 H
Carbon Dioxide 20 L
BUN 20
Creatinine 1.1
Glucose 91
Calcium 8.4
Vital Signs:
Vital Signs
Temp Pulse Resp BP Pulse Ox
97.9 F 61 18 128/62 96
02/22/24 07:30 02/22/24 07:30 02/22/24 07:30 02/22/24 07:30 02/22/24 08:35
I&O
02/21/24 02/22/24 02/23/24
06:59 06:59 06:59
Intake Total 2180 / 2180 60 / 60
Output Total 675 / 675 1725 / 1725
Balance 1505 / 1505 -1665 / -1665
Review of Systems
-
Unable to obtain full review of systems at this time due to: Dementia
History Source: Patient
Respiratory: Denies Trouble Breathing
Cardiac: Denies Chest Pain
Abdomen/GI: Denies Abdominal Pain, Nausea or Vomiting
Neuro: Denies Headache
Physical Exam
-
HEENT: Normocephalic, Atraumatic, Moist Mucous Membranes and Anicteric
Respiratory: Clear to Auscultation and Non Labored Respirations; Negative Wheezes, Rales, Rhonchi or Crackles
Cardiac: Regular Rhythm and S1/S2; Negative Murmur, Rub or Calf Tenderness
GI: Soft, Nontender, Nondistended, Normal Bowel Sounds and Ostomy
Genito-urinary: No Costovertebral Tender and Ro (nonbloody urine, pale yellow with some sediment)
Skin: Warm and Dry
Neuro: Awake and Alert
Psych: Calm
--- NOTE | 2024-02-22 11:09 | CM ---
Addendum entered by Machelle Jackman 02/22/24 11:56:
door manager spoke with PT and recommendation is for skilled placement, referral sent to [facility].
Original Note:
door manager reviewed patient's chart and spoke with patient's spouse from home, per spouse patient has been deteriorating at home and has been using walker, she was hoping that patient may meet criteria for skilled placement and had selected [facility]
Artie. door manager reached out to PT/OT for updated notes to see if patient still meets criteria for home or if director of casework should make a referral to [facility] skilled.
Plan; [facility], spouse is hoping that patient meets criteria for skilled placement, will await updated PT/OT notes.
[2024-02-22] MEDS: STERILE WATER FOR INJECTION 20 ML IV (11:30)
[2024-02-22] MEDS: ROCEPHIN 2000 MG IV (11:30)
[2024-02-22] MEDS: LEVAQUIN 150 IV (16:24)
[2024-02-22] MEDS: FLOMAX 0.8 MG PO (21:06)
[2024-02-22] MEDS: EXELON PATCH 9.5 MG TRANSDERM (21:07)
[2024-02-23] MEDS: NSS 1000 IV ×2 (02:24→10:16)
[2024-02-23 03:55] VITALS: BP 140/79
--- NOTE | 2024-02-23 06:19 | W.PN.URO.CBU ---
Today's Communication / Plan
-
KEEP MORGAN ; no voiding trial
Assessment / Plan
-
Urosepsis
Urinary Retention
Diagnosis
-
Date of Service: February 23, 2024
-
Patient Diagnosis: urosepsis in pt with urinary retention/ prostate cancer ; febrile s/p instumentation
Objective
-
Vital Signs
Temp Pulse Resp BP Pulse Ox
97.9 F 82 18 140/79 97
02/23/24 03:55 02/23/24 03:55 02/23/24 03:55 02/23/24 03:55 02/23/24 03:55
Intake and Output
02/21/24 02/22/24 02/23/24
06:59 06:59 06:59
Intake Total 2180 / 2180 60 / 60 2230 / 2230
Output Total 675 / 675 1725 / 1725 3325 / 3325
Balance 1505 / 1505 -1665 / -1665 -1095 / -1095
Intake:
Oral fluids 480 / 480 60 / 60 1020 / 1020
IV fluids (Total) 1700 / 1700 800 / 800
IV piggybacks 410 / 410
Output:
Liquid stool amount 300 / 300 225 / 225
Colostomy 300 / 300
Ileostomy 225 / 225
Urine, Morgan 475 / 475 1325 / 1325 3100 / 3100
Urine, Voided 200 / 200 100 / 100
bimicrobial UTI
[2024-02-23 07:23] LABS: Hematocrit 33.4 % (39.0-52.0); Mean Corp Hgb Conc. 35.9 g/dL (33.0-37.0); Mean Corpuscular Hgb 32.7 pg (27.0-31.0); Mean Platelet Volume 10.3 fL (7.4-10.4); Platelet Count 133 10^3/uL (130-400); Red Blood Cell Count 3.67 10^6/uL (4.70-6.10); Red Cell Dist. Width 14.7 % (11.5-14.5); White Blood Cell Count 5.4 10^3/uL (4.8-10.8)
[2024-02-23] MEDS: ASPIR LOW (ENTERIC COATED) 81 MG PO (07:33)
[2024-02-23] MEDS: CASODEX 50 MG PO (07:33)
[2024-02-23] MEDS: MUCINEX 600 MG PO ×2 (07:33→21:07)
[2024-02-23] MEDS: HEPARIN 5000 UNITS SC ×2 (07:33→21:06)
[2024-02-23] MEDS: ZYLOPRIM 300 MG PO (07:33)
[2024-02-23 07:50] VITALS: BP 132/71
[2024-02-23 07:56] LABS: Blood Urea Nitrogen 18 mg/dl (9-20); Calcium 8.8 mg/dl (8.4-10.2); Carbon Dioxide 18 mmol/L (22-30); Chloride 109 mmol/L (98-107); Estimated Creatinine Clearance 44 ml/min; Glucose 97 mg/dl (70-99); Potassium 3.6 mmol/L (3.5-5.1); Sodium 140 mmol/L (135-145); eGFR > 60.00
--- NOTE | 2024-02-23 10:16 | W.PN.HOSP.TC ---
Today's Communication/Plan
-
Continue Levaquin every 48 hours
Plan for [facility] on Sunday
Assessment / Plan
Assessment / Plan
#Severe sepsis secondary to UTI and CAP
-Met SIRS criteria on arrival; recent Alcocer exchange as source of UTI; also found to have LLL CAP
-Was receiving IV antibiotics with CTX as well as doxycycline, transition to Levaquin on 02/21
-Blood cultures have returned without any growth thus far; urine culture with Klebsiella and Proteus
-Sensitivities did show both species sensitive to levofloxacin
-Will continue levofloxacin every 48 hours to be completed on 02/25
-Continue to monitor temperature curve and CBC
-Medically stable for discharge
#Acute urinary retention secondary to BPH
#Hematuria (resolved)
-Status post Alcocer catheter, urology today mentions deferring against trial of void until seen as outpatient
-Will continue with tamsulosin therapy for now
-Urology following
#Dysphagia
-Status post VSE, currently on soft and bite-size diet
-Should be followed with GI as outpatient depending on GOC
-If seeking aggressive therapy should have consideration for EGD
#Acute delirium/metabolic encephalopathy
-Secondary to sepsis, back to mental baseline
#Nonischemic myocardial infarction
#CAD s/p CABG/PCI
-Had elevated troponin, trend not consistent with ACS
-Likely in the context of sepsis; most recent TTE with preserved EF
-Remains on home regimen of daily aspirin
#Crohn's disease
#H/O Colorectal cancer s/p colectomy with ileostomy
-Not currently on any immunosuppressive therapy
-No signs or symptoms of Crohn's flare at this time
-Not currently receiving treatment for colorectal cancer
-Continues with ostomy care
#Gout
-Home medications include allopurinol 300 mg, no signs of flare at this time
#CKD 3a
-Baseline creatinine 1.3; likely in the context of age
-No associated anemia, acidemia, bone mineral disease
-Creatinine at baseline
#H/O prostate
-Unclear stage, remains on bicalutamide 50 mg daily
CODE STATUS: DNI only
DVT prophylaxis: Subcutaneous heparin
Diet: Soft and bite-size
Disposition: [facility] on Sunday
Anticipated Discharge: 24 - 48 hours
Subjective/Interval History
-
Date of Service: February 23, 2024
Seen and examined at the bedside. No acute events overnight. AFVSS this morning.
Was seen by urology already this morning, planning to keep Alcocer and defer against further TOV while here.
History and review of systems limited by his advanced dementia
Objective Data
-
Labs:
Laboratory Results
02/23/24
07:12
WBC 5.4
Hgb 12.0 L
Hct 33.4 L
Plt Count 133
Sodium 140
Potassium 3.6
Chloride 109 H
Carbon Dioxide 18 L
BUN 18
Creatinine 1.0
Glucose 97
Calcium 8.8
Vital Signs:
Vital Signs
Temp Pulse Resp BP Pulse Ox
98 F 64 18 132/71 97
02/23/24 07:50 02/23/24 07:50 02/23/24 07:50 02/23/24 07:50 02/23/24 07:50
I&O
02/22/24 02/23/24 02/24/24
06:59 06:59 06:59
Intake Total 60 / 60 2230 / 2230
Output Total 1725 / 1725 3325 / 3325
Balance -1665 / -1665 -1095 / -1095
Review of Systems
-
Unable to obtain full review of systems at this time due to: Dementia
Physical Exam
-
General: Well Nourished, No Apparent Distress and Comfortable
HEENT: Normocephalic, Atraumatic and Moist Mucous Membranes
Respiratory: Clear to Auscultation and Non Labored Respirations; Negative Accessory Resp Muscle Use
Cardiac: Regular Rhythm and S1/S2; Negative Murmur, Rub or Gallop
GI: Soft, Nontender, Nondistended, Normal Bowel Sounds and Ostomy
Musculoskeletal: No Clubbing, No Cyanosis and No Edema
Skin: Warm and Dry; Negative Rash
Neuro: Awake, Alert, Nonfocal/Grossly Intact and Central Nerve's Intact
Psych: Calm
Data Reviewed
-
Labs: Labs Reviewed by me
[2024-02-23 11:36] VITALS: BP 120/72
[2024-02-23 15:00] VITALS: BP 101/55
[2024-02-23] MEDS: FLOMAX 0.8 MG PO (21:03)
[2024-02-23] MEDS: EXELON PATCH 9.5 MG TRANSDERM (21:04)
[2024-02-23 23:54] VITALS: BP 128/69
[2024-02-24] MEDS: NSS 1000 IV ×2 (05:53→08:34)
[2024-02-24] MEDS: MUCINEX 600 MG PO ×2 (08:34→21:06)
[2024-02-24] MEDS: HEPARIN 5000 UNITS SC ×2 (08:34→21:06)
[2024-02-24] MEDS: CASODEX 50 MG PO (08:34)
[2024-02-24] MEDS: ASPIR LOW (ENTERIC COATED) 81 MG PO (08:34)
[2024-02-24] MEDS: ZYLOPRIM 300 MG PO (08:34)
[2024-02-24 09:06] VITALS: BP 131/71
--- NOTE | 2024-02-24 12:16 | W.PN.HOSP.TC ---
Today's Communication/Plan
-
Monitor clinically
Continue with levofloxacin every 48 hours through 03/07
Maintain Alcocer catheter and follow-up with urology in office after discharge
SNF placement on 02/24
Assessment / Plan
Assessment / Plan
#Severe sepsis secondary to UTI and CAP
-Met SIRS criteria on arrival; recent Alcocer exchange as source of UTI; also found to have LLL CAP
-Was receiving IV antibiotics with CTX as well as doxycycline, transition to Levaquin on 02/21
-Blood cultures have returned without any growth thus far; urine culture with Klebsiella and Proteus
-Sensitivities did show both species sensitive to levofloxacin
-Will continue levofloxacin every 48 hours to be completed on 02/25
-Continue to monitor temperature curve and CBC
-Medically stable for discharge
#Acute urinary retention secondary to BPH
#Hematuria (resolved)
-Status post Alcocer catheter, urology today mentions deferring against trial of void until seen as outpatient
-Will continue with tamsulosin therapy for now
-Urology following
#Dysphagia
-Status post VSE, currently on soft and bite-size diet
-Should be followed with GI as outpatient depending on GOC
-If seeking aggressive therapy should have consideration for EGD
#Acute delirium/metabolic encephalopathy
-Secondary to sepsis, back to mental baseline
#Nonischemic myocardial infarction
#CAD s/p CABG/PCI
-Had elevated troponin, trend not consistent with ACS
-Likely in the context of sepsis; most recent TTE with preserved EF
-Remains on home regimen of daily aspirin
#Crohn's disease
#H/O Colorectal cancer s/p colectomy with ileostomy
-Not currently on any immunosuppressive therapy
-No signs or symptoms of Crohn's flare at this time
-Not currently receiving treatment for colorectal cancer
-Continues with ostomy care
#Gout
-Home medications include allopurinol 300 mg, no signs of flare at this time
#CKD 3a
-Baseline creatinine 1.3; likely in the context of age
-No associated anemia, acidemia, bone mineral disease
-Creatinine at baseline
#H/O prostate
-Unclear stage, remains on bicalutamide 50 mg daily
CODE STATUS: DNI only
DVT prophylaxis: Subcutaneous heparin
Diet: Soft and bite-size
Disposition: [facility] on Sunday
Anticipated Discharge: Within 24 hours
Subjective/Interval History
-
Date of Service: February 24, 2024
Seen and examined at the bedside. No acute events reported overnight. AFVSS this morning.
He was having breakfast, was at the bedside this morning. Planning for SNF placement tomorrow.
ROS limited by advanced dementia, had no complaints on behalf of
Objective Data
-
Vital Signs:
Vital Signs
Temp Pulse Resp BP Pulse Ox
98 F 70 16 131/71 97
02/24/24 09:06 02/24/24 09:06 02/24/24 09:06 02/24/24 09:06 02/24/24 09:06
I&O
02/23/24 02/24/24 02/25/24
06:59 06:59 06:59
Intake Total 2230 / 2230 500 / 500 60 / 60
Output Total 3325 / 3325 1175 / 1175 950 / 950
Balance -1095 / -1095 -675 / -675 -890 / -890
Review of Systems
-
Unable to obtain full review of systems at this time due to: Dementia
Physical Exam
-
General: Well Nourished, No Apparent Distress and Comfortable
HEENT: Normocephalic, Atraumatic and Moist Mucous Membranes
Respiratory: Clear to Auscultation and Non Labored Respirations
Cardiac: Regular Rhythm and S1/S2; Negative Murmur, Rub or Gallop
GI: Soft, Nontender, Nondistended and Normal Bowel Sounds
Musculoskeletal: No Clubbing, No Cyanosis and No Edema
Skin: Warm and Dry; Negative Rash
Neuro: AO x 3, Nonfocal/Grossly Intact and Central Nerve's Intact
Psych: Calm
[2024-02-24] MEDS: LEVAQUIN 150 IV (15:41)
[2024-02-24 15:55] VITALS: BP 152/78
[2024-02-24] MEDS: FLOMAX 0.8 MG PO (21:06)
[2024-02-24] MEDS: EXELON PATCH 9.5 MG TRANSDERM (21:07)
[2024-02-24 23:01] VITALS: BP 168/93
[2024-02-25 00:21] VITALS: BP 148/69
--- NOTE | 2024-02-25 07:48 | W.PN.HOSP.TC ---
Addendum entered and electronically signed by Troy Vaughn MD 02/26/24 18:02:
agree with below
Original Note:
Today's Communication/Plan
-
Continue Abx, Continue PT/OT, DC planning to SNF (likely [facility])
Assessment / Plan
Assessment / Plan
IMPRESSION: 88 year old male with advanced dementia, CAD s/p CABG x 2 (7 stents), prostate cancer, CKD, crohn's, colon cancer s/p colectomy+ileostomy who presents with sepsis.
PLAN:
Severe sepsis:
Secondary to UTI and community acquired pneumonia
WBC 10.4 with left shift. Febrile 100.5 on arrival. Hypotension. Elevated troponin with normal EKG.
CXR: LLL pneumonia
Urinalysis positive for UTI, chronic ro use. Recent ro exchange
Lactate 1.4
- Continue maintenance IVF
- Blood culture x 2 no growth, urine culture positive for Klebsiella and Proteus sensitive to levaquin
- Was on Ceftriaxone and Doxycycline for dual coverage. switched to Levofloxacin Q48 (renally dosed) on 02/21 for 7 day course. Last day 02/25
- Appreciate urology recs - keep current ro. Outpatient urology f/U
Toxic metabolic encephalopathy:
Altered mental status secondary to severe sepsis
- Treat as above
- Appeared to have achieved baseline mental status. Occasional waxing/waning mental status in line with dementia per .
- Monitor
Non-ischemic myocardial injury:
Elevated troponin with normal EKG. Secondary to sepsis
Trops 0.192 peaked at 0.224 -> 0.164
- Resolved
Urinary retention:
2/2 BPH/Prostate cancer. Urinary retention with ro since hospitalization for COVID. Recent ro exchange
- Appreciate urology recs. Continue ro, outpatient urology f/u
- hematuria resolved
- Continue Tamsulosin
Hematuria:
2/2 urethral trauma from ro exchange
- Resolved.
- Appreciate uro recs
- Follow H&H
Dysphagia:
- ST eval/video swallow: - IDDS 6 with asp precautions
CAD:
Status post CABG x 2
- elevated trops not consistent with ACS
- Continue home Asp 81mg
Crohn's
- S/P colectomy with ostomy
- Continue ostomy care
CKD 3a:
- At baseline creatinine
- Avoid nephrotoxic agents
Alzheimer Dementia:
Advanced
- Continue Rivastigmine
- Refusing some PO meds. Will convert oral meds to IV as feasible
- eval: - IDDS 6 with asp precautions
- Pt with some functional decline since hospitalization for COVID.
- PT/OT
- SNF recommended at discharge
Prostate Cancer:
- Diagnosed per MRI
- Continue Bicalutamide
- Outpatient urology f/u
Hx of gout:
- No signs of flare
- Continue Allopurinol
DVT PPX: Heparin SQ
Code status: Limited: Do not Intubate.
Anticipated Discharge: Today
Anticipated Discharge: Today
Subjective/Interval History
-
Date of Service: February 25, 2024
No acute events overnight
Objective Data
-
Vital Signs:
Vital Signs
Temp Pulse Resp BP Pulse Ox
97.5 F 72 18 148/69 99
02/24/24 23:01 02/25/24 00:21 02/24/24 23:01 02/25/24 00:21 02/24/24 23:01
I&O
02/24/24 02/25/24 02/26/24
06:59 06:59 06:59
Intake Total 500 / 500 780 / 780
Output Total 1175 / 1175 2975 / 2975
Balance -675 / -675 -2195 / -2195
Review of Systems
-
Unable to obtain full review of systems at this time due to: Dementia
Psych: Reports Other (confused)
Physical Exam
-
General: No Apparent Distress and Comfortable
HEENT: Normocephalic, Atraumatic and Moist Mucous Membranes
Respiratory: Clear to Auscultation and Non Labored Respirations; Negative Wheezes, Rales, Rhonchi or Crackles
Cardiac: Regular Rhythm and S1/S2; Negative Murmur, Rub or Calf Tenderness
GI: Soft, Nontender, Nondistended, Normal Bowel Sounds and Ostomy
Genito-urinary: Clear Urine, Ro and Other; Negative Bloody Urine
Musculoskeletal: Edema, Right Lower Extrem and Edema, Left Lower Extrem
Skin: Warm and Dry
Neuro: Awake and Alert
Psych: Calm and Confused
[2024-02-25 07:57] VITALS: BP 145/75
[2024-02-25] MEDS: HEPARIN 5000 UNITS SC ×2 (08:40→21:09)
[2024-02-25] MEDS: CASODEX 50 MG PO (08:40)
[2024-02-25] MEDS: ZYLOPRIM 300 MG PO (08:40)
[2024-02-25] MEDS: ASPIR LOW (ENTERIC COATED) 81 MG PO (08:40)
[2024-02-25] MEDS: MUCINEX 600 MG PO ×2 (08:40→21:11)
--- NOTE | 2024-02-25 09:25 | CM ---
Addendum entered by Machelle Jackman 02/25/24 13:07:
Per admissions at [facility] patient's insurance pays for 85% and patient is responsible for 15% of skilled facility, machine adjuster leader case trim discussed with patient's spouse and she is requesting referrals to [facility] and [facility], referrals sent.
Original Note:
Chart reviewed and per updated physician notes patient is possible discharge, plan is for skilled placement, patient will need updated PT/OT notes for Auth, last physical therapy notes are from 02/22/24. Call placed to [facility] to check on a
available bed for patient and per admissions at [facility] they need to confirm that they are in network with insurance.
Plan; Hopefully skilled placement at [facility] waiting on admissions to confirm that they have a contract with patient's insurance, will need updated PT/OT notes and then Auth for skilled placement.
[2024-02-25 12:10] VITALS: BP 139/82; BP 145/79; PULSE 67
[2024-02-25 12:45] LABS: Hematocrit 38.1 % (39.0-52.0); Hemoglobin 13.4 g/dL (13.0-18.0); Mean Corp Hgb Conc. 35.2 g/dL (33.0-37.0); Mean Corpuscular Hgb 32.7 pg (27.0-31.0); Mean Corpuscular Volume 92.9 fL (80.0-94.0); Mean Platelet Volume 10.4 fL (7.4-10.4); Platelet Count 151 10^3/uL (130-400); White Blood Cell Count 6.2 10^3/uL (4.8-10.8)
[2024-02-25 12:55] LABS: Blood Urea Nitrogen 20 mg/dl (9-20); Calcium 9.3 mg/dl (8.4-10.2); Carbon Dioxide 22 mmol/L (22-30); Chloride 109 mmol/L (98-107); Estimated Creatinine Clearance 40 ml/min; Glucose 104 mg/dl (70-99); Potassium 3.8 mmol/L (3.5-5.1); Sodium 142 mmol/L (135-145); eGFR > 60.00
[2024-02-25 14:28] VITALS: BP 102/64; PULSE 76; O2SAT 97
[2024-02-25 15:16] VITALS: BP 142/75
[2024-02-25] MEDS: FLOMAX 0.8 MG PO (21:03)
[2024-02-25] MEDS: EXELON PATCH 9.5 MG TRANSDERM (21:04)
[2024-02-25 23:16] VITALS: BP 148/82
[2024-02-26 07:42] VITALS: BP 140/73
[2024-02-26] MEDS: ASPIR LOW (ENTERIC COATED) 81 MG PO (08:56)
[2024-02-26] MEDS: ZYLOPRIM 300 MG PO (08:56)
[2024-02-26] MEDS: HEPARIN 5000 UNITS SC ×2 (08:56→20:09)
[2024-02-26] MEDS: CASODEX 50 MG PO (08:56)
[2024-02-26] MEDS: MUCINEX 600 MG PO ×2 (08:56→20:09)
--- NOTE | 2024-02-26 09:39 | CM ---
Addendum entered by Machelle Jackman 02/26/24 14:45:
Referral sent to [facility] at family request.
Original Note:
production stage manager spoke with nursing and plan is for skilled placement at [facility], per admissions at [facility] they will need a financial application completed for [facility] and they will not have case preparer and liner proceed with Auth, unless financial
application has been received. Call placed to patient's spouse to complete financial application for [facility] today. Patient is on Med sitter. Patient needs to be off med sitter for rehab placement.
Plan; Skilled placement hopefully at [facility].
--- NOTE | 2024-02-26 11:41 | W.PN.HOSP.TC ---
Addendum entered and electronically signed by Troy Vaughn MD 02/26/24 18:02:
agree with below
Original Note:
Today's Communication/Plan
-
DC planning. Complete IV abx course
Assessment / Plan
Assessment / Plan
IMPRESSION: 88 year old male with advanced dementia, CAD s/p CABG x 2 (7 stents), prostate cancer, CKD, crohn's, colon cancer s/p colectomy+ileostomy who presents with sepsis.
PLAN:
Severe sepsis:
Secondary to UTI and community acquired pneumonia
WBC 10.4 with left shift. Febrile 100.5 on arrival. Hypotension. Elevated troponin with normal EKG. Normal lactate
CXR: LLL pneumonia
Urinalysis positive for UTI, chronic ro use. Recent ro exchange. Lactate 1.4
- Blood culture x 2 no growth, urine culture positive for Klebsiella and Proteus sensitive to levaquin
- Was on Ceftriaxone and Doxycycline for dual coverage. switched to Levofloxacin Q48 (renally dosed) on 02/21 for 7 day course per urine C&S. Last day 02/25
- Appreciate urology recs - keep current ro. Will need outpatient urology f/U
Toxic metabolic encephalopathy:
Altered mental status secondary to severe sepsis
- Treat as above
- Appeared to be at baseline mental status. Occasional waxing/waning mental status in line with dementia per .
- Monitor
Non-ischemic myocardial injury:
Elevated troponin with normal EKG. Secondary to sepsis
Trops 0.192 peaked at 0.224 -> 0.164
- Resolved
Urinary retention:
2/2 BPH/Prostate cancer. Urinary retention with ro since hospitalization for COVID. Recent ro exchange
- Appreciate urology recs. Continue ro, outpatient urology f/u
- hematuria resolved
- Continue Tamsulosin
- Outpatient urology F/U
Hematuria:
2/2 urethral trauma from ro exchange
- Resolved. H&H stable
- Appreciate uro recs
Dysphagia:
- ST eval/video swallow: - IDDS 6 with asp precautions
CAD:
Status post CABG x 2
- elevated trops not consistent with ACS
- Continue home Asp 81mg
Crohn's
- S/P colectomy with ostomy
- No sign of flare
- Continue ostomy care
CKD 3a:
- At baseline creatinine
- Avoid nephrotoxic agents
Alzheimer Dementia:
Advanced
- Continue Rivastigmine
- Refusing some PO meds. Will convert oral meds to IV as feasible
- ST eval: - IDDS 6 with asp precautions
- Pt with some functional decline since hospitalization for COVID.
- PT/OT
- SNF recommended at discharge
Prostate Cancer:
- Diagnosed per MRI
- Continue Bicalutamide
- Outpatient urology f/u
Hx of gout:
- No signs of flare
- Continue Allopurinol
DVT PPX: Heparin SQ
Code status: Limited: Do not Intubate.
Anticipated Discharge: Today
Anticipated Discharge: Within 24 hours
Subjective/Interval History
-
Date of Service: February 26, 2024
No acte overnight events.
Objective Data
-
Vital Signs:
Vital Signs
Temp Pulse Resp BP Pulse Ox
98.2 F 65 20 140/73 97
02/26/24 07:42 02/26/24 07:42 02/26/24 07:42 02/26/24 07:42 02/26/24 07:42
I&O
02/25/24 02/26/24 02/27/24
06:59 06:59 06:59
Intake Total 780 / 780 1080 / 1080
Output Total 2975 / 2975 1250 / 1250
Balance -2195 / -2195 -170 / -170
Review of Systems
-
Unable to obtain full review of systems at this time due to: Dementia
History Source: Patient
Cardiac: Denies Chest Pain
Abdomen/GI: Denies Abdominal Pain
Physical Exam
-
General: No Apparent Distress and Comfortable
HEENT: Normocephalic, Atraumatic and Anicteric
Respiratory: Clear to Auscultation and Non Labored Respirations; Negative Wheezes, Rales, Rhonchi or Crackles
Cardiac: Regular Rhythm; Negative Murmur, Rub or Calf Tenderness
GI: Soft, Nontender, Nondistended, Normal Bowel Sounds and Ostomy
Genito-urinary: Clear Urine and Ro; Negative Bloody Urine
Musculoskeletal: No Clubbing, No Cyanosis, Edema, Right Lower Extrem and Edema, Left Lower Extrem
Skin: Warm and Dry
Neuro: Awake, Alert and Oriented (to name )
Psych: Calm
--- NOTE | 2024-02-26 15:02 | PN.CDI ---
CDI
- -
CDI:
Physician Documentation Request
Admit Date: 02/20/24 15:39
Dear Doctor Marivel,
Patient admitted with sepsis.
02/25 PN, 'Urinalysis positive for UTI, chronic Alcocer use.'
Please clarify the likely relationship between these conditions:
Yes, UTI is related to/associated with/due to chronic Alcocer catheter.
No, UTI is not related to/associated with/due to chronic Alcocer catheter but it is due to ___. (Please specify)
Unable to determine
Use of terms such as suspected, likely, concern for, or probable (associated with a specific diagnosis that is being evaluated, monitored, or treated as if it exists) are acceptable and can be coded in the inpatient setting, when documented at the
time of discharge.
Thank you,
Mayela DICKERSON,RN,CCDS
CDI Specialist
Available via [facility] text
Please use your independent medical judgment in providing your response.
[2024-02-26 15:19] VITALS: BP 137/73
[2024-02-26] MEDS: LEVAQUIN 150 IV (16:10)
[2024-02-26] MEDS: EXELON PATCH 9.5 MG TRANSDERM (22:13)
[2024-02-26] MEDS: FLOMAX 0.8 MG PO (22:17)
[2024-02-26 23:17] VITALS: BP 154/79
[2024-02-27 07:32] VITALS: BP 124/65
[2024-02-27] MEDS: ASPIR LOW (ENTERIC COATED) 81 MG PO (08:40)
[2024-02-27] MEDS: ZYLOPRIM 300 MG PO (08:40)
[2024-02-27] MEDS: CASODEX 50 MG PO (08:40)
[2024-02-27] MEDS: MUCINEX 600 MG PO (08:40)
[2024-02-27] MEDS: HEPARIN 5000 UNITS SC (08:40)
[2024-02-27 10:44] VITALS: BP 124/65; PULSE 56
--- NOTE | 2024-02-27 12:44 | W.PN.HOSP.TC ---
Addendum entered and electronically signed by Troy Vaughn MD 02/27/24 13:48:
UTI is related to/associated with/due to chronic Ro catheter
Original Note:
Today's Communication/Plan
-
Completed abx course. Appears at baseline mental status. DC planning
Assessment / Plan
Assessment / Plan
IMPRESSION: 88 year old male with advanced dementia, CAD s/p CABG x 2 (7 stents), prostate cancer, CKD, crohn's, colon cancer s/p colectomy+ileostomy who presents with sepsis.
PLAN:
Severe sepsis:
Secondary to UTI and community acquired pneumonia
WBC 10.4 with left shift. Febrile 100.5 on arrival. Hypotension. Elevated troponin with normal EKG. Normal lactate
CXR: LLL pneumonia
Urinalysis positive for UTI, chronic ro use. Recent ro exchange. Lactate 1.4
- Blood culture x 2 no growth, urine culture positive for Klebsiella and Proteus sensitive to levaquin
- Was on Ceftriaxone and Doxycycline for dual coverage. switched to Levofloxacin Q48 (renally dosed) on 02/21 for 7 day course per urine C&S. Abx course completed
- Appreciate urology recs - keep current ro. Will need outpatient urology f/U for trial of void
Toxic metabolic encephalopathy:
Altered mental status secondary to severe sepsis
- Treat as above
- Appears to be at baseline mental status. Occasional waxing/waning mental status in line with dementia per .
- Monitor
Non-ischemic myocardial injury:
Elevated troponin with normal EKG. Secondary to sepsis
Trops 0.192 peaked at 0.224 -> 0.164
- Resolved
Urinary retention:
2/2 BPH/Prostate cancer. Urinary retention with ro since hospitalization for COVID. Recent ro exchange
- Appreciate urology recs. Continue ro, outpatient urology f/u
- hematuria resolved
- Continue Tamsulosin
- Outpatient urology F/U
Hematuria:
2/2 urethral trauma from ro exchange
- Resolved. H&H stable
- Appreciate uro recs
Dysphagia:
- ST eval/video swallow: - IDDS 6 with asp precautions
CAD:
Status post CABG x 2
- elevated trops not consistent with ACS
- Continue home Asp 81mg
Crohn's
- S/P colectomy with ostomy
- No sign of flare
- Continue ostomy care
CKD 3a:
- At baseline creatinine
- Avoid nephrotoxic agents
Alzheimer Dementia:
Advanced
- Continue Rivastigmine
- Refusing some PO meds. Will convert oral meds to IV as feasible
- eval: - IDDS 6 with asp precautions
- Pt with some functional decline since hospitalization for COVID.
- PT/OT
- SNF recommended at discharge
Prostate Cancer:
- Diagnosed per MRI
- Continue Bicalutamide
- Outpatient urology f/u
Hx of gout:
- No signs of flare
- Continue Allopurinol
DVT PPX: Heparin SQ
Code status: Limited: Do not Intubate.
Anticipated Discharge: Today
Anticipated Discharge: Within 24 hours
Subjective/Interval History
-
Date of Service: February 27, 2024
No acute events overnight
Objective Data
-
Vital Signs:
Vital Signs
Temp Pulse Resp BP Pulse Ox
97.4 F 56 12 124/65 97
02/27/24 07:32 02/27/24 07:32 02/27/24 07:32 02/27/24 07:32 02/27/24 07:32
I&O
02/26/24 02/27/24 02/28/24
06:59 06:59 06:59
Intake Total 1080 / 1080 1320 / 1320
Output Total 1250 / 1250 1300 / 1300
Balance -170 / -170
Review of Systems
-
Unable to obtain full review of systems at this time due to: Dementia
Constitutional: Denies Fever
Cardiac: Denies Chest Pain
Abdomen/GI: Denies Abdominal Pain
Physical Exam
-
HEENT: Normocephalic, Atraumatic and Moist Mucous Membranes
Respiratory: Clear to Auscultation and Non Labored Respirations; Negative Wheezes, Rales, Rhonchi or Crackles
Cardiac: Regular Rhythm and S1/S2; Negative Murmur, Rub or Calf Tenderness
GI: Soft, Nontender, Nondistended and Normal Bowel Sounds
Genito-urinary: Clear Urine and Ro
Musculoskeletal: No Clubbing, No Cyanosis, Edema, Right Lower Extrem and Edema, Left Lower Extrem
Skin: Warm and Dry
Neuro: Awake, Alert and Oriented (person)
Psych: Calm and Apparent Dementia
--- NOTE | 2024-02-27 12:49 | CM ---
Addendum entered by Machelle Jackman 02/27/24 14:46:
Patient has been approved for 7 days skilled at [facility], Auth [id number]., 02/27/24-03/04/24.
[place]
Report [phone]
Fax [phone]
Original Note:
public policy manager reviewed patient's chart and met with patient and spouse, referral sent to [facility] however they have denied patient. public policy manager reached out to [facility] for possible bed tomorrow, per admissions they will have a bed for patient
tomorrow, mattress spring encaser will submit patient's physical therapy notes for Auth to [facility].
[facility]
Tax ID [id number]
Dr. Gr
Plan; Skilled placement at [facility] pending Auth.
--- NOTE | 2024-02-27 14:55 | W.DCSUMMARY ---
Discharge Summary
Discharge Data
Date of Admission: 02/20/24
Date of Discharge: 02/27/24
-
Pending Results: No
Hospital Course
Discharging Physician : Troy Vaughn MD; Radha Orta MD
Disposition : Skilled Nurse Facility ([facility])
Principal Discharge diagnosis : Severe sepsis secondary to UTI and left lower lobe pneumonia, hematuria, toxic metabolic encephalopathy, non-ischemic myocardial injury, dysphagia
Chronic Discharge diagnosis : Dementia, CAD s/p CABG x 2 (7 stents), urinary retention with chronic ro, prostate cancer, CKD, crohn's, colon cancer s/p colectomy+ileostomy, gout, dysphagia
Hospital Course : 88 year old male with above past medical history who presented to the ED on 02/19 with altered mental status. He was found to be septic secondary to catheter associated UTI and pneumonia. On arrival to the ED he was more confused
and less responsive/active than baseline according to spouse, febrile 100.5, hypotensive, with elevated troponin + normal EKG, normal lactate, normal WBC with left shift. He had a ro in place on arrival which was exchanged the day prior to
arrival. Mild gross hematuria noticed in ro bag. Chest X-ray showed left lower lobe pneumonia, and urinalysis indicated urinary tract infection.
IVF resuscitation was started, blood cultures and urine culture were obtained. He was started on ceftriaxone and Doxycycline for dual coverage of UTI and community acquired pneumonia, given IV due to frequent refusal of PO medication. Ro was left
in place per urology recommendation. Blood cultures showed no growth but urine cultures showed Klebsiella pneumoniae and Proteus vulgaris sensitive to Levofloxacin. He was then switched to renally-dosed Levaquin for 7 day course.
Troponin trend peaked at 0.224 without further elevation. Repeat EKGs with no evidence of acute ischemia.
Hematuria was quickly resolved with stable hemoglobin levels.
Fever did not recur and vitals remained stable throughout stay.
Speech therapy annd video swallow evaluation was done with recommendations for IDDS-6 diet with aspiration precautions.
Physical therapy assessment was done with recommendations for group home facility upon discharge. He is stable for discharge and is set to be discharged to [facility] with close follow up with urologist Dr. Genao. Can follow up with PCP
shortly.
Important imaging findings :
CXR 02/19: There is moderate pleural parenchymal airspace disease at the posterior left lung base consistent with pneumonia
Discharge Plan
-
Patient Disposition: Care Home/SNF
Discharge Diagnosis/Procedures: Sepsis secondary to UTI and pneumonia
Condition: Good
Diet: Other diet
Additional Diets: Soft and bite-size diet
Activity: As tolerated
Driving Restrictions: No driving
Bathing Restrictions: None
Blood Work: None
Others Tests: None
Other Services: PT and OT
Activity Restrictions/Additional Instructions:
Elevate heels off bed with pillow/s
Pressure redistributing chair cushion (i.e. Air chair cushion).
Should have follow-up appointment with family doctor within 7 days of discharge from rehab
Patient will need to follow-up with Dr. Genao in urologist office for trial of void
Instructions: Sepsis in adults
Referrals:
Qamar Genao MD [Active] -
UNKNOWN - PT NOT,BENITO [Family Provider] -
Prescriptions:
Continued
aspirin 81 MG tablet,delayed release (DR/EC)
81 mg PO DAILY
tamsulosin 0.4 MG capsule
0.8 mg PO HS
bicalutamide 50 mg Tablet
50 mg PO DAILY
allopurinol 300 mg Tablet
300 mg PO DAILY
rivastigmine 9.5 mg/24 hour Patch 24 Hour
9.5 mg TRANSDERMAL HS
Discharge Orders:
Discharge Patient (As Directed); Ordered 02/27/24
Ordered By: Radha Orta
Discharge Date and Time
Print Language: GERMAN
[2024-02-27 15:17] VITALS: BP 141/70
[2024-02-27] MEDS: FLUAD (65 yr+) 2024-2025 FORMULA 0.5 ML IM (15:52)
--- NOTE | 2024-02-27 18:21 | PTCARENOTE ---
Called twice for report and no pickling solution maker from [facility]. If they call back for report, I will give it to them.
== END 2024-02-27 19:06 | DRG 871 ==
LOC: 4 WEST ACU 15:39
PROVIDERS: Physician Assistant; Student in an Organized Health Care Education/Training Program; ADMITTING PHYSICIAN Family Medicine; ATTENDING PHYSICIAN Hospitalist; CONSULT PHYSICIAN Specialist; EMERGENCY PHYSICIAN Emergency Medicine
PROC: 3E02340 Introduction of Influenza Vaccine into Muscle, Percutaneous Approach (ICD-10-PCS; 2024-02-27)
DX: A41.9 Sepsis, unspecified organism (principal); G92.8 Other toxic encephalopathy; J18.9 Pneumonia, unspecified organism; T83.511A Infection and inflammatory reaction due to indwelling urethral catheter, initial encounter; K50.90 Crohn's disease, unspecified, without complications; I5A Non-ischemic myocardial injury (non-traumatic); F05 Delirium due to known physiological condition; N39.0 Urinary tract infection, site not specified; R65.20 Severe sepsis without septic shock; G30.9 Alzheimer's disease, unspecified; F02.C0 Dementia in other diseases classified elsewhere, severe, without behavioral disturbance, psychotic disturbance, mood disturbance, and anxiety; I12.9 Hypertensive chronic kidney disease with stage 1 through stage 4 chronic kidney disease, or unspecified chronic kidney disease; N18.31 Chronic kidney disease, stage 3a; B96.1 Klebsiella pneumoniae [K. pneumoniae] as the cause of diseases classified elsewhere; B96.4 Proteus (mirabilis) (morganii) as the cause of diseases classified elsewhere; Y84.6 Urinary catheterization as the cause of abnormal reaction of the patient, or of later complication, without mention of misadventure at the time of the procedure; R13.10 Dysphagia, unspecified; E78.00 Pure hypercholesterolemia, unspecified; I25.10 Atherosclerotic heart disease of native coronary artery without angina pectoris; I25.2 Old myocardial infarction; Z95.1 Presence of aortocoronary bypass graft; Z95.5 Presence of coronary angioplasty implant and graft; K21.9 Gastro-esophageal reflux disease without esophagitis; M10.9 Gout, unspecified; R31.0 Gross hematuria; N40.1 Benign prostatic hyperplasia with lower urinary tract symptoms; R33.8 Other retention of urine; I95.9 Hypotension, unspecified; R47.1 Dysarthria and anarthria; Z79.82 Long term (current) use of aspirin; Z79.899 Other long term (current) drug therapy; Z87.19 Personal history of other diseases of the digestive system; Z87.442 Personal history of urinary calculi; Z90.49 Acquired absence of other specified parts of digestive tract; Z85.038 Personal history of other malignant neoplasm of large intestine; Z85.46 Personal history of malignant neoplasm of prostate; Z93.2 Ileostomy status; Z87.891 Personal history of nicotine dependence; Z86.16 Personal history of COVID-19; Z88.0 Allergy status to penicillin; Z88.1 Allergy status to other antibiotic agents; Z88.5 Allergy status to narcotic agent; Z88.8 Allergy status to other drugs, medicaments and biological substances; Z23 Encounter for immunization
CPT/HCPCS: 71046; 74230; 80048; 80053; 81003; 81015; 83605; 84484; 85025; 85027; 85610; 85730; 87040; 87077; 87086; 87186; 87502; 87811; 90662; 92526; 92610; 92611; 93005; 96361; 96374; 97116; 97163; 97167; 97530; 97535; 99285; G0008

== ENCOUNTER → 2024-03-17 12:41 | Outpatient (REF) | payer OTHER, SELFPAY ==
[2024-03-17 13:27] LABS: % Eosinophils 5.9 % (0-6); % Immature Granulocytes 0.4 % (0-0.5); % Lymphocytes 21.8 % (20.5-51.1); % Monocytes 10.6 % (1.7-9.3); % Neutrophils 60.3 % (42.2-75.2); Absolute Basophils 0.1 10^3/uL (0-0.2); Absolute Eosinophils 0.5 10^3/uL (0-0.7); Absolute Lymphocytes 1.7 10^3/uL (1.2-3.4); Absolute Monocytes 0.8 10^3/uL (0.1-0.6); Absolute Neutrophils 4.7 10^3/uL (1.4-6.5); Hematocrit 36.3 % (39.0-52.0); Hemoglobin 12.4 g/dL (13.0-18.0); Mean Corp Hgb Conc. 34.2 g/dL (33.0-37.0); Mean Corpuscular Hgb 33.3 pg (27.0-31.0); Mean Corpuscular Volume 97.6 fL (80.0-94.0); Mean Platelet Volume 11.9 fL (7.4-10.4); Nucleated Red Blood Cells % 0 % (-); Platelet Count 172 10^3/uL (130-400); Red Blood Cell Count 3.72 10^6/uL (4.70-6.10); Red Cell Dist. Width 15.5 % (11.5-14.5); White Blood Cell Count 7.8 10^3/uL (4.8-10.8)
[2024-03-17 13:35] LABS: Blood Urea Nitrogen 23 mg/dl (9-20); Calcium 9.2 mg/dl (8.4-10.2); Carbon Dioxide 22 mmol/L (22-30); Chloride 106 mmol/L (98-107); Glucose 92 mg/dl (70-99); Potassium 4.9 mmol/L (3.5-5.1); Sodium 141 mmol/L (135-145); eGFR 58.17
== END ==
LOC: OLABP 12:41
PROVIDERS: ATTENDING PHYSICIAN Family Medicine
DX: N18.30 Chronic kidney disease, stage 3 unspecified (principal); I25.10 Atherosclerotic heart disease of native coronary artery without angina pectoris; A41.9 Sepsis, unspecified organism; J18.9 Pneumonia, unspecified organism; G93.40 Encephalopathy, unspecified; F03.90 Unspecified dementia, unspecified severity, without behavioral disturbance, psychotic disturbance, mood disturbance, and anxiety; Z85.46 Personal history of malignant neoplasm of prostate
CPT/HCPCS: 36415; 80048; 85025

== ENCOUNTER → 2024-04-02 11:46 | Outpatient (REF) | payer OTHER, SELFPAY ==
[2024-04-02 12:18] LABS: % Basophils 1.1 % (0-2); % Eosinophils 4.7 % (0-6); % Immature Granulocytes 0.4 % (0-0.5); % Lymphocytes 16.8 % (20.5-51.1); % Monocytes 6.9 % (1.7-9.3); % Neutrophils 70.1 % (42.2-75.2); Absolute Basophils 0.1 10^3/uL (0-0.2); Absolute Eosinophils 0.4 10^3/uL (0-0.7); Absolute Lymphocytes 1.3 10^3/uL (1.2-3.4); Absolute Monocytes 0.5 10^3/uL (0.1-0.6); Absolute Neutrophils 5.2 10^3/uL (1.4-6.5); Hematocrit 38.2 % (39.0-52.0); Mean Corpuscular Hgb 33.3 pg (27.0-31.0); Mean Corpuscular Volume 97.9 fL (80.0-94.0); Mean Platelet Volume 11.1 fL (7.4-10.4); Nucleated Red Blood Cells % 0 % (-); Platelet Count 173 10^3/uL (130-400); Red Cell Dist. Width 15.8 % (11.5-14.5); White Blood Cell Count 7.4 10^3/uL (4.8-10.8)
[2024-04-02 13:33] LABS: ALT (SGPT) 18 U/L (0-50); AST (SGOT) 32 U/L (17-59); Albumin 3.9 g/dl (3.5-5.0); Alkaline Phosphatase 51 U/L (38-126); Blood Urea Nitrogen 20 mg/dl (9-20); Calcium 9.6 mg/dl (8.4-10.2); Carbon Dioxide 22 mmol/L (22-30); Chloride 109 mmol/L (98-107); Glucose 96 mg/dl (70-99); Potassium 4.3 mmol/L (3.5-5.1); Sodium 144 mmol/L (135-145); Total Protein 6.9 g/dl (6.3-8.2); eGFR > 60.00
[2024-04-02 14:22] LABS: Lipase 53 U/L (23-300)
== END ==
LOC: OLABP 11:46
PROVIDERS: ATTENDING PHYSICIAN Family Medicine
DX: G93.40 Encephalopathy, unspecified (principal); B96.4 Proteus (mirabilis) (morganii) as the cause of diseases classified elsewhere; M62.81 Muscle weakness (generalized); R26.2 Difficulty in walking, not elsewhere classified; R13.10 Dysphagia, unspecified; Z43.2 Encounter for attention to ileostomy; N40.1 Benign prostatic hyperplasia with lower urinary tract symptoms; R33.9 Retention of urine, unspecified; I25.10 Atherosclerotic heart disease of native coronary artery without angina pectoris; N18.30 Chronic kidney disease, stage 3 unspecified; Z85.46 Personal history of malignant neoplasm of prostate; K50.90 Crohn's disease, unspecified, without complications; F03.90 Unspecified dementia, unspecified severity, without behavioral disturbance, psychotic disturbance, mood disturbance, and anxiety; A41.9 Sepsis, unspecified organism; J18.9 Pneumonia, unspecified organism; B96.1 Klebsiella pneumoniae [K. pneumoniae] as the cause of diseases classified elsewhere; M10.9 Gout, unspecified
CPT/HCPCS: 36415; 80053; 83690; 85025

== ENCOUNTER → 2024-04-21 09:58 | Outpatient (REF) | payer OTHER, SELFPAY ==
[2024-04-21 10:43] LABS: Hematocrit 38.3 % (39.0-52.0); Hemoglobin 13.1 g/dL (13.0-18.0); Mean Corp Hgb Conc. 34.2 g/dL (33.0-37.0); Mean Corpuscular Hgb 33.9 pg (27.0-31.0); Mean Platelet Volume 12.2 fL (7.4-10.4); Platelet Count 181 10^3/uL (130-400); Red Blood Cell Count 3.87 10^6/uL (4.70-6.10); Red Cell Dist. Width 15.6 % (11.5-14.5); White Blood Cell Count 6.5 10^3/uL (4.8-10.8)
[2024-04-21 10:56] LABS: ALT (SGPT) 16 U/L (0-50); AST (SGOT) 24 U/L (17-59); Albumin 3.7 g/dl (3.5-5.0); Alkaline Phosphatase 57 U/L (38-126); Blood Urea Nitrogen 24 mg/dl (9-20); Calcium 9.2 mg/dl (8.4-10.2); Carbon Dioxide 23 mmol/L (22-30); Chloride 109 mmol/L (98-107); Glucose 94 mg/dl (70-99); Potassium 4.2 mmol/L (3.5-5.1); Sodium 142 mmol/L (135-145); Total Bilirubin 0.6 mg/dl (0.2-1.3); Total Protein 6.6 g/dl (6.3-8.2); eGFR 58.17
[2024-04-21 11:32] LABS: TSH Reflex To Free T4 2.91 uIU/ml (0.47-4.68)
== END ==
LOC: OLABP 09:58
PROVIDERS: ATTENDING PHYSICIAN Family Medicine
DX: G93.40 Encephalopathy, unspecified (principal); B96.4 Proteus (mirabilis) (morganii) as the cause of diseases classified elsewhere; R26.2 Difficulty in walking, not elsewhere classified; R13.10 Dysphagia, unspecified; N40.1 Benign prostatic hyperplasia with lower urinary tract symptoms; R33.9 Retention of urine, unspecified; I25.10 Atherosclerotic heart disease of native coronary artery without angina pectoris; N18.30 Chronic kidney disease, stage 3 unspecified; Z85.46 Personal history of malignant neoplasm of prostate; F03.90 Unspecified dementia, unspecified severity, without behavioral disturbance, psychotic disturbance, mood disturbance, and anxiety; A41.9 Sepsis, unspecified organism; J18.9 Pneumonia, unspecified organism; T83.510A Infection and inflammatory reaction due to cystostomy catheter, initial encounter
CPT/HCPCS: 36415; 80053; 84443; 85027

== ENCOUNTER → 2024-04-22 16:32 | Outpatient (REF) | payer OTHER, SELFPAY ==
[2024-04-22 16:54] LABS: Urine Albumin 1+ (Neg - Trace); Urine Bilirubin Negative (Negative); Urine Character Very Cloudy (Clear); Urine Color Yellow; Urine Glucose Negative (Negative); Urine Ketone Negative (Negative); Urine Leukocyte 2+ (Negative); Urine Nitrite Positive (Negative); Urine Occult Blood 2+ (Negative); Urine Specific Gravity 1.025 (<1.030); Urine Urobilinogen Negative (Neg - 1+)
[2024-04-22 17:05] LABS: Urine Amorphous Seen; Urine Squamous Cell 0-2 /LPF (Few)
[2024-04-22 17:06] LABS: Urine Bacteria Many (Negative); Urine White Cell >100 /HPF (0-5)
== END ==
LOC: OLABP 16:32
PROVIDERS: ATTENDING PHYSICIAN Family Medicine
DX: N40.1 Benign prostatic hyperplasia with lower urinary tract symptoms (principal); N18.30 Chronic kidney disease, stage 3 unspecified; Z85.46 Personal history of malignant neoplasm of prostate; B96.4 Proteus (mirabilis) (morganii) as the cause of diseases classified elsewhere; G93.40 Encephalopathy, unspecified; M62.81 Muscle weakness (generalized); R26.2 Difficulty in walking, not elsewhere classified; R13.10 Dysphagia, unspecified; Z43.2 Encounter for attention to ileostomy; R33.9 Retention of urine, unspecified; I25.10 Atherosclerotic heart disease of native coronary artery without angina pectoris; K50.90 Crohn's disease, unspecified, without complications; F03.90 Unspecified dementia, unspecified severity, without behavioral disturbance, psychotic disturbance, mood disturbance, and anxiety; A41.9 Sepsis, unspecified organism; J18.9 Pneumonia, unspecified organism; B96.1 Klebsiella pneumoniae [K. pneumoniae] as the cause of diseases classified elsewhere; M10.9 Gout, unspecified
CPT/HCPCS: 81003; 81015; 87086

== ENCOUNTER → 2024-04-25 10:54 | Outpatient (REF) | payer OTHER, SELFPAY ==
[2024-04-25 12:13] LABS: Blood Urea Nitrogen 26 mg/dl (9-20); Calcium 9.3 mg/dl (8.4-10.2); Carbon Dioxide 27 mmol/L (22-30); Chloride 105 mmol/L (98-107); Glucose 99 mg/dl (70-99); Potassium 4.1 mmol/L (3.5-5.1); Sodium 140 mmol/L (135-145); eGFR 52.84
== END ==
LOC: OLABP 10:54
PROVIDERS: ATTENDING PHYSICIAN Family Medicine
DX: G93.40 Encephalopathy, unspecified (principal); B96.4 Proteus (mirabilis) (morganii) as the cause of diseases classified elsewhere; M62.81 Muscle weakness (generalized); R26.2 Difficulty in walking, not elsewhere classified; R13.10 Dysphagia, unspecified; Z43.2 Encounter for attention to ileostomy; N40.1 Benign prostatic hyperplasia with lower urinary tract symptoms; R33.9 Retention of urine, unspecified; I25.10 Atherosclerotic heart disease of native coronary artery without angina pectoris; N18.30 Chronic kidney disease, stage 3 unspecified; K40.90 Unilateral inguinal hernia, without obstruction or gangrene, not specified as recurrent; F03.90 Unspecified dementia, unspecified severity, without behavioral disturbance, psychotic disturbance, mood disturbance, and anxiety; Z85.46 Personal history of malignant neoplasm of prostate; A41.9 Sepsis, unspecified organism; J18.9 Pneumonia, unspecified organism; B96.1 Klebsiella pneumoniae [K. pneumoniae] as the cause of diseases classified elsewhere
CPT/HCPCS: 36415; 80048

== ENCOUNTER → 2024-04-30 10:44 | Outpatient (REF) | payer OTHER, SELFPAY ==
[2024-04-30 13:12] LABS: Urine Albumin Negative (Neg - Trace); Urine Bilirubin Negative (Negative); Urine Character Clear (Clear); Urine Color Yellow; Urine Glucose Negative (Negative); Urine Ketone Negative (Negative); Urine Leukocyte 2+ (Negative); Urine Nitrite Positive (Negative); Urine Occult Blood Trace (Negative); Urine Specific Gravity 1.015 (<1.030); Urine Urobilinogen Negative (Neg - 1+)
[2024-04-30 14:53] LABS: Urine Bacteria Many (Negative); Urine Squamous Cell 0-2 /LPF (Few)
[2024-04-30 14:54] LABS: Urine White Cell 40-50 /HPF (0-5)
[2024-04-30 14:56] LABS: Urine Red Blood Cell 0-2 /HPF (0-2)
== END ==
LOC: OLABP 10:44
PROVIDERS: ATTENDING PHYSICIAN Family Medicine
DX: G93.40 Encephalopathy, unspecified (principal); B96.4 Proteus (mirabilis) (morganii) as the cause of diseases classified elsewhere; M62.81 Muscle weakness (generalized); R26.2 Difficulty in walking, not elsewhere classified; R13.10 Dysphagia, unspecified; N40.1 Benign prostatic hyperplasia with lower urinary tract symptoms
CPT/HCPCS: 81003; 81015; 87077; 87086; 87186

== ENCOUNTER 2024-04-30 12:19 | Emergency (ER) | payer OTHER, SELFPAY ==
[2024-04-30 12:22] VITALS: BP 101/57; BMI 21.0
--- NOTE | 2024-04-30 12:27 | ED.GENMED ---
History of Present Illness
General
Chief Complaint: Abdominal Pain
Source: patient, spouse and ambulance crew
Exam Limitations: dementia
Time Seen by Provider: 04/30/24 12:25
Nursing documentation reviewed up to this point in time: agreed with
History of Present Illness
History of Present Illness:
88 yo male from [place] w h/o CVA, ulcerative colitis/colon CA/ileostomy, kidney stone w stent, Alcocer catheter, dementia, cardiac cath with stent, CAD, HTN, HLD, MD, present via EMS, dementia, poor historian, wincing and moaning but states 'no'
when asked if he has any pain. en route will get rest of history then.
12:42 PM:
arrives. In his room over the past 2 weeks 2 people in hospice and states he is very anxious and agitated]
states patient is very stoic and rarely complains of pain. She agrees that his behavior now is abnormal and it seems like he is in pain.
When arrived to visit patient at 10:30 AM, patient was 'fine.' A little while later she went to the nurses desk or something and when she came back she noted he was in pain. She states he seems he is in pain since
He's had no vomiting
Past History
Past History
ED Past Medical History: CAD, Cancer (Bowel), GERD, HTN, Hypercholesterolemia, MD and Other (Left foot drop, lumbar DJD, SBO, Kidney stones, Ulcerative colitis then CA)
ED Past Surgical History: Bowel resection (Colon removed with ileostomy), Cardiac (CABG, PTCA with stents) and Other (Total colectomy due to ulcerative colitis)
Social History
Tobacco: Former smoker
Alcohol: None
Drug: None
Personal:
Living: with family
Employment: Retired
Family History
Family History: Other (Noncontributory)
Review of Systems
Review of Systems
Allergies reviewed?: Yes
Unable to obtain full review of systems at this time due to: dementia
Other source history: family and ambulance crew
All Other Systems: ROS reviewed and negative except as documented in HPI and ROS
ABD/GI: Reports abdominal pain
Phy Exam
Physical Exam
Physical Exam:
GENERAL: Wincing and moaning, unable to state why. Alert, disoriented, confused, dementia
CONSTITUTIONAL: Afebrile.
EYES: PERRL, conjunctivae normal
Neck: Supple
ENMT: moist mucus membranes, Pharynx nl
RESPIRATORY: Regular respirations, nonlabored, lungs clear.
CARDIOVASCULAR: Regular rate and rhythm, no murmurs, no rubs.
GI: Soft, nontender, normal BS
MUSCULOSKELETAL: Moves with ease. Well perfused.
SKIN: Warm, dry, pink
PSYCH: Anxious mood and affect. Well kept.
NEUROLOGIC: Awake, alert. Confused/dementia.
Course
Orders/Labs/Results
Orders:
Orders
04/30/24 12:26
CT Abd/Pel (IV only)-DH only Urgent
Comment:
Reason For Exam: abd pain, dementia
04/30/24 12:27
0.9% Sodium Chloride 500 ml [Nss] 500 ml IV BOLUS
04/30/24 12:32
Complete Blood Count/With Diff Urgent
Comprehensive Metabolic Panel Urgent
Lipase Urgent
Comment: ADD ON
04/30/24 12:33
Urinalysis Reflex To Culture Urgent
Date Specimen was Collected: 04/30/24
Time Specimen was Collected: 12:31
04/30/24 12:48
Add On- LAB Urgent
Tests Added?: Lipase
04/30/24 12:54
CR Chest Portable - 1 View Urgent
Comment:
Reason For Exam: hypoxic, dementia
Reason Study Needs to be Portable: Patient Unstable
Abnormal Lab Results
04/30/24
12:32
RBC 4.21 L 10^6/uL
(4.70-6.10)
MCV 97.9 H fL
(80.0-94.0)
MCH 33.5 H pg
(27.0-31.0)
RDW 14.8 H %
(11.5-14.5)
MPV 11.0 H fL
(7.4-10.4)
Absolute Neuts (auto) 7.1 H 10^3/uL
(1.4-6.5)
Absolute Monos (auto) 0.8 H 10^3/uL
(0.1-0.6)
Lymphocytes % 13.5 L %
(20.5-51.1)
BUN 27 H mg/dl
(9-20)
Creatinine 1.4 H mg/dL
(0.7-1.3)
04/30/24 12:32
04/30/24 12:32
Vital Signs
Initial and Last Documented VS:
Initial Vital Signs
Temp Pulse Resp BP Pulse Ox
97.7 F 74 16 101/57 98
04/30/24 12:22 04/30/24 12:22 04/30/24 12:22 04/30/24 12:22 04/30/24 12:22
Last Documented Vital Signs
Temp Pulse Resp BP Pulse Ox
100.6 F H 81 18 114/67 95
04/30/24 12:36 04/30/24 15:15 04/30/24 15:15 04/30/24 15:15 04/30/24 15:15
MDM/Problems Addressed
Differential Diagnosis Includes:
kidney stone, bowel obstruction,
MDM/Problems Addressed:
88 yo male from [place] w h/o CVA, ulcerative colitis/colon CA/ileostomy, kidney stone w stent, Alcocer catheter, dementia, cardiac cath with stent, CAD, HTN, HLD, MD, present via EMS, dementia, poor historian, wincing and moaning but states 'no'
when asked if he has any pain. en route will get rest of history then.
12:42 PM:
arrives. In his room over the past 2 weeks 2 people in hospice and states he is very anxious and agitated]
states patient is very stoic and rarely complains of pain. She agrees that his behavior now is abnormal and it seems like he is in pain.
When arrived to visit patient at 10:30 AM, patient was 'fine.' A little while later she went to the nurses desk for something and when she came back she noted he was in pain. She states he seems he is in pain since
He's had no vomiting
Has had Alcocer catheter in for urine retention
1:45 PM:
CBC with no clinically significant abnormality
CMP: BUN/creat 27/1.4 minimally worse than his baseline
Lipase: WNL
UA: Negative
Pt resting comfortably with at bedside. When asked if he feels better states yes but points to abdomen and states 'still [incomprehensible]' assuming he still has abd pain and says 'yes' when asked. CT pending
4:00 p.m.
Pt has been quiet with at bedside, NAD
CT abd/pelvis results pending
4:[address] results read: IMPRESSION: Atelectasis within the lower lungs.
Large hiatal hernia/intrathoracic stomach, extending into the left lower hemithorax.
Moderate to severe aortic valvular calcification, and please correlate with any clinical signs or symptoms that suggest significant aortic stenosis. Sternal wires are present with evidence of previous bypass surgery.
Bilateral nephroliths. No evidence for ureteral calculus. Scarring involving the mid to lower portion of the right kidney.
Alcocer catheter within the bladder. 4 mm calcification within the midline posterior bladder which is likely a small bladder calculus. Suggestion of wall thickening of the bladder, especially anteriorly, and please correlate clinically to exclude
cystitis. Air within the bladder lumen compatible with Alcocer catheter.
Status post colectomy. Right paramedian upper pelvic ileostomy. No evidence for obstruction or free intraperitoneal air.
Results reviewed with at bedside.
Pt remains calm.
VSS 100/54, HR 82, RR 16, Pulse ox 95% RA
ED Attending Note
-
Portions of this chart may have been created with voice recognition software.� Occasional wrong word or��sound alike� substitutions may have occurred due to the inherent limitations of voice recognition software.
Discharge Plan
Departure
Patient Disposition: Usp/SNF
Date of Disposition: 04/30/24
Time of Disposition: 16:22
Condition: Fair
Discharge Problem:
Abdominal pain
Instructions: Abdominal Pain
Prescriptions:
No Action
aspirin 81 MG tablet,delayed release (DR/EC)
81 mg PO DAILY
tamsulosin 0.4 MG capsule
0.8 mg PO HS
bicalutamide 50 mg Tablet
50 mg PO DAILY
allopurinol 300 mg Tablet
300 mg PO DAILY
rivastigmine 9.5 mg/24 hour Patch 24 Hour
9.5 mg TRANSDERMAL HS
Referrals:
Luis Angel Calles MD [Family Provider] - Follow up in 2-3 days
Activity Restrictions/Additional Instructions:
As I discussed with Mrs. Tavares, nothing worrisome in Mr. Tavares's workup here today
With his at bedside, he has been calm, quiet, entire stay since his 's arrival.
Copy of abd/pelvis CT scan and labs sent back with patient.
Interventions
Interventions:
*Risk Screen - Suicide Last Done: 04/30/24 12:22
*General Assessment Last Done: 04/30/24 12:22
*Neglect/Abuse Screening Last Done: 04/30/24 12:22
ED- Fall Risk Assessment Last Done: 04/30/24 12:31
*ED COVID-19 Vaccine History Last Done: 04/30/24 12:56
IM-Huswar-Purzvccxdt Assessment Last Done: 12/11/24 12:22
Discharge Date and Time
Print Language: PANAMANIAN
[2024-04-30] MEDS: NSS 500 IV (12:35)
[2024-04-30 12:57] LABS: % Basophils 0.9 % (0-2); % Eosinophils 2.7 % (0-6); % Immature Granulocytes 0.3 % (0-0.5); % Lymphocytes 13.5 % (20.5-51.1); % Monocytes 8.7 % (1.7-9.3); % Neutrophils 73.9 % (42.2-75.2); Absolute Basophils 0.1 10^3/uL (0-0.2); Absolute Eosinophils 0.3 10^3/uL (0-0.7); Absolute Lymphocytes 1.3 10^3/uL (1.2-3.4); Absolute Monocytes 0.8 10^3/uL (0.1-0.6); Absolute Neutrophils 7.1 10^3/uL (1.4-6.5); Hematocrit 41.2 % (39.0-52.0); Hemoglobin 14.1 g/dL (13.0-18.0); Mean Corp Hgb Conc. 34.2 g/dL (33.0-37.0); Mean Corpuscular Hgb 33.5 pg (27.0-31.0); Mean Corpuscular Volume 97.9 fL (80.0-94.0); Nucleated Red Blood Cells % 0 % (-); Platelet Count 165 10^3/uL (130-400); Red Blood Cell Count 4.21 10^6/uL (4.70-6.10); Red Cell Dist. Width 14.8 % (11.5-14.5); White Blood Cell Count 9.6 10^3/uL (4.8-10.8)
[2024-04-30 13:01] VITALS: BP 110/52
[2024-04-30 13:10] LABS: Urine Albumin Negative (Neg - Trace); Urine Bilirubin Negative (Negative); Urine Character Clear (Clear); Urine Color Yellow; Urine Glucose Negative (Negative); Urine Ketone Negative (Negative); Urine Leukocyte Negative (Negative); Urine Nitrite Negative (Negative); Urine Occult Blood Negative (Negative); Urine Urobilinogen Negative (Neg - 1+)
[2024-04-30 13:45] LABS: ALT (SGPT) 18 U/L (0-50); AST (SGOT) 29 U/L (17-59); Albumin 4.5 g/dl (3.5-5.0); Alkaline Phosphatase 67 U/L (38-126); Blood Urea Nitrogen 27 mg/dl (9-20); Calcium 10.1 mg/dl (8.4-10.2); Carbon Dioxide 24 mmol/L (22-30); Chloride 105 mmol/L (98-107); Estimated Creatinine Clearance 33 ml/min; Glucose 88 mg/dl (70-99); Potassium 3.9 mmol/L (3.5-5.1); Sodium 141 mmol/L (135-145); Total Bilirubin 1.2 mg/dl (0.2-1.3); Total Protein 7.7 g/dl (6.3-8.2); eGFR 48.34
[2024-04-30 14:00] VITALS: BP 105/51
[2024-04-30 14:02] LABS: Lipase 112 U/L (23-300)
[2024-04-30 15:15] VITALS: BP 114/67
[2024-04-30 16:00] VITALS: BP 100/54
[2024-04-30 17:01] VITALS: BP 113/51
== END 2024-04-30 17:47 ==
LOC: EMR 12:19
PROVIDERS: Registered Nurse; EMERGENCY PHYSICIAN Student in an Organized Health Care Education/Training Program; FAMILY PHYSICIAN Family Medicine
DX: R10.9 Unspecified abdominal pain (principal); K44.9 Diaphragmatic hernia without obstruction or gangrene; E78.00 Pure hypercholesterolemia, unspecified; F03.90 Unspecified dementia, unspecified severity, without behavioral disturbance, psychotic disturbance, mood disturbance, and anxiety; I25.10 Atherosclerotic heart disease of native coronary artery without angina pectoris; K21.9 Gastro-esophageal reflux disease without esophagitis; I10 Essential (primary) hypertension; Z85.038 Personal history of other malignant neoplasm of large intestine; Z86.73 Personal history of transient ischemic attack (TIA), and cerebral infarction without residual deficits; Z87.891 Personal history of nicotine dependence; Z90.49 Acquired absence of other specified parts of digestive tract; Z93.2 Ileostomy status; Z95.1 Presence of aortocoronary bypass graft; Z95.5 Presence of coronary angioplasty implant and graft
CPT/HCPCS: 96360; 99284; 71045; 74177; 80053; 81003; 83690; 85025; Q9967

== ENCOUNTER → 2024-05-23 11:05 | Outpatient (REF) | payer OTHER, SELFPAY ==
[2024-05-23 11:33] LABS: % Basophils 1.6 % (0-2); % Eosinophils 6.8 % (0-6); % Immature Granulocytes 0.4 % (0-0.5); % Lymphocytes 22.5 % (20.5-51.1); % Monocytes 8.4 % (1.7-9.3); % Neutrophils 60.3 % (42.2-75.2); Absolute Basophils 0.1 10^3/uL (0-0.2); Absolute Eosinophils 0.4 10^3/uL (0-0.7); Absolute Lymphocytes 1.3 10^3/uL (1.2-3.4); Absolute Monocytes 0.5 10^3/uL (0.1-0.6); Absolute Neutrophils 3.4 10^3/uL (1.4-6.5); Hematocrit 35.7 % (39.0-52.0); Hemoglobin 11.6 g/dL (13.0-18.0); Mean Corp Hgb Conc. 32.5 g/dL (33.0-37.0); Mean Corpuscular Hgb 33.4 pg (27.0-31.0); Mean Corpuscular Volume 102.9 fL (80.0-94.0); Mean Platelet Volume 11.9 fL (7.4-10.4); Nucleated Red Blood Cells % 0 % (-); Platelet Count 152 10^3/uL (130-400); Red Blood Cell Count 3.47 10^6/uL (4.70-6.10); White Blood Cell Count 5.6 10^3/uL (4.8-10.8)
[2024-05-23 11:35] LABS: Urine Albumin Trace (Neg - Trace); Urine Bilirubin Negative (Negative); Urine Character Slightly Cloudy (Clear); Urine Color Yellow; Urine Glucose Negative (Negative); Urine Ketone Negative (Negative); Urine Leukocyte 2+ (Negative); Urine Nitrite Positive (Negative); Urine Occult Blood 4+ (Negative); Urine Specific Gravity 1.015 (<1.030); Urine Urobilinogen Negative (Neg - 1+)
[2024-05-23 11:47] LABS: Urine Bacteria Moderate (Negative); Urine Red Blood Cell >100 /HPF (0-2); Urine White Cell >100 /HPF (0-5)
[2024-05-23 11:48] LABS: Urine Squamous Cell 0-2 /LPF (Few)
[2024-05-23 14:10] LABS: Blood Urea Nitrogen 24 mg/dl (9-20); Calcium 8.9 mg/dl (8.4-10.2); Carbon Dioxide 22 mmol/L (22-30); Chloride 107 mmol/L (98-107); Glucose 86 mg/dl (70-99); Potassium 4.3 mmol/L (3.5-5.1); Sodium 139 mmol/L (135-145); eGFR 58.17
== END ==
LOC: OLABP 11:05
PROVIDERS: ATTENDING PHYSICIAN Family Medicine
DX: G93.40 Encephalopathy, unspecified (principal); B96.4 Proteus (mirabilis) (morganii) as the cause of diseases classified elsewhere; M62.81 Muscle weakness (generalized); R26.2 Difficulty in walking, not elsewhere classified; R13.10 Dysphagia, unspecified; Z43.2 Encounter for attention to ileostomy; N40.1 Benign prostatic hyperplasia with lower urinary tract symptoms; R33.9 Retention of urine, unspecified; I25.10 Atherosclerotic heart disease of native coronary artery without angina pectoris; N18.30 Chronic kidney disease, stage 3 unspecified; Z85.46 Personal history of malignant neoplasm of prostate; K50.90 Crohn's disease, unspecified, without complications; F03.90 Unspecified dementia, unspecified severity, without behavioral disturbance, psychotic disturbance, mood disturbance, and anxiety; A41.9 Sepsis, unspecified organism; J18.9 Pneumonia, unspecified organism; B96.1 Klebsiella pneumoniae [K. pneumoniae] as the cause of diseases classified elsewhere; M10.9 Gout, unspecified
CPT/HCPCS: 36415; 80048; 81003; 81015; 85025; 87077; 87086; 87186

== ENCOUNTER → 2024-07-21 10:02 | Outpatient (REF) | payer OTHER, SELFPAY ==
[2024-07-21 11:12] LABS: % Basophils 1.2 % (0-2); % Eosinophils 8.4 % (0-6); % Immature Granulocytes 0.2 % (0-0.5); % Lymphocytes 23.3 % (20.5-51.1); % Monocytes 8.9 % (1.7-9.3); Absolute Basophils 0.1 10^3/uL (0-0.2); Absolute Eosinophils 0.5 10^3/uL (0-0.7); Absolute Lymphocytes 1.4 10^3/uL (1.2-3.4); Absolute Monocytes 0.5 10^3/uL (0.1-0.6); Absolute Neutrophils 3.5 10^3/uL (1.4-6.5); Hematocrit 36.4 % (39.0-52.0); Hemoglobin 12.1 g/dL (13.0-18.0); Mean Corp Hgb Conc. 33.2 g/dL (33.0-37.0); Mean Corpuscular Hgb 33.3 pg (27.0-31.0); Mean Corpuscular Volume 100.3 fL (80.0-94.0); Mean Platelet Volume 11.9 fL (7.4-10.4); Nucleated Red Blood Cells % 0 % (-); Platelet Count 130 10^3/uL (130-400); Red Blood Cell Count 3.63 10^6/uL (4.70-6.10); Red Cell Dist. Width 14.7 % (11.5-14.5)
[2024-07-21 11:35] LABS: Blood Urea Nitrogen 35 mg/dl (9-20); Calcium 9.3 mg/dl (8.4-10.2); Carbon Dioxide 24 mmol/L (22-30); Chloride 107 mmol/L (98-107); Glucose 92 mg/dl (70-99); Potassium 4.3 mmol/L (3.5-5.1); Sodium 138 mmol/L (135-145); eGFR 52.84
== END ==
LOC: OLABP 10:02
PROVIDERS: ATTENDING PHYSICIAN Family Medicine
DX: G93.40 Encephalopathy, unspecified (principal); B96.4 Proteus (mirabilis) (morganii) as the cause of diseases classified elsewhere; M26.20 Unspecified anomaly of dental arch relationship; R13.10 Dysphagia, unspecified; Z43.2 Encounter for attention to ileostomy; N40.1 Benign prostatic hyperplasia with lower urinary tract symptoms; R33.9 Retention of urine, unspecified; I25.10 Atherosclerotic heart disease of native coronary artery without angina pectoris; N18.30 Chronic kidney disease, stage 3 unspecified; F03.90 Unspecified dementia, unspecified severity, without behavioral disturbance, psychotic disturbance, mood disturbance, and anxiety; K50.90 Crohn's disease, unspecified, without complications; B96.1 Klebsiella pneumoniae [K. pneumoniae] as the cause of diseases classified elsewhere
CPT/HCPCS: 36415; 80048; 85025

== ENCOUNTER → 2024-09-02 15:19 | Outpatient (REF) | payer OTHER, SELFPAY ==
[2024-09-02 16:11] LABS: Urine Albumin 3+ (Neg - Trace); Urine Bilirubin Negative (Negative); Urine Character Cloudy (Clear); Urine Color Yellow; Urine Glucose Negative (Negative); Urine Ketone Negative (Negative); Urine Leukocyte 3+ (Negative); Urine Nitrite Positive (Negative); Urine Occult Blood 4+ (Negative); Urine Specific Gravity 1.015 (<1.030); Urine Urobilinogen Negative (Neg - 1+)
[2024-09-02 16:46] LABS: Urine Bacteria Many (Negative); Urine White Cell >100 /HPF (0-5)
== END ==
LOC: OLABP 15:19
PROVIDERS: ATTENDING PHYSICIAN Family Medicine
DX: G93.40 Encephalopathy, unspecified (principal); B96.4 Proteus (mirabilis) (morganii) as the cause of diseases classified elsewhere; M62.81 Muscle weakness (generalized); R26.2 Difficulty in walking, not elsewhere classified; R13.10 Dysphagia, unspecified; Z43.2 Encounter for attention to ileostomy; N40.1 Benign prostatic hyperplasia with lower urinary tract symptoms; R33.9 Retention of urine, unspecified; I25.10 Atherosclerotic heart disease of native coronary artery without angina pectoris; N18.30 Chronic kidney disease, stage 3 unspecified; K50.90 Crohn's disease, unspecified, without complications; F03.90 Unspecified dementia, unspecified severity, without behavioral disturbance, psychotic disturbance, mood disturbance, and anxiety; Z85.46 Personal history of malignant neoplasm of prostate; A41.9 Sepsis, unspecified organism; J18.9 Pneumonia, unspecified organism; M10.9 Gout, unspecified
CPT/HCPCS: 81003; 81015; 87086

== ENCOUNTER → 2024-09-03 11:42 | Outpatient (REF) | payer OTHER, SELFPAY ==
[2024-09-03 12:11] LABS: Hemoglobin 11.7 g/dL (13.0-18.0); Mean Corp Hgb Conc. 33.4 g/dL (33.0-37.0); Mean Corpuscular Hgb 34.3 pg (27.0-31.0); Mean Corpuscular Volume 102.6 fL (80.0-94.0); Platelet Count 135 10^3/uL (130-400); Red Blood Cell Count 3.41 10^6/uL (4.70-6.10); Red Cell Dist. Width 14.8 % (11.5-14.5); White Blood Cell Count 6.1 10^3/uL (4.8-10.8)
[2024-09-03 13:05] LABS: Blood Urea Nitrogen 35 mg/dl (9-20); Calcium 9.3 mg/dl (8.4-10.2); Carbon Dioxide 20 mmol/L (22-30); Chloride 112 mmol/L (98-107); Glucose 88 mg/dl (70-99); Potassium 4.7 mmol/L (3.5-5.1); Sodium 141 mmol/L (135-145); eGFR 52.51
== END ==
LOC: OLABP 11:42
PROVIDERS: ATTENDING PHYSICIAN Family Medicine
DX: Z85.46 Personal history of malignant neoplasm of prostate (principal); F03.90 Unspecified dementia, unspecified severity, without behavioral disturbance, psychotic disturbance, mood disturbance, and anxiety; K50.90 Crohn's disease, unspecified, without complications; B96.4 Proteus (mirabilis) (morganii) as the cause of diseases classified elsewhere; G93.40 Encephalopathy, unspecified; M62.81 Muscle weakness (generalized); R26.2 Difficulty in walking, not elsewhere classified; R13.10 Dysphagia, unspecified; Z43.2 Encounter for attention to ileostomy; A41.9 Sepsis, unspecified organism; J18.9 Pneumonia, unspecified organism; B96.1 Klebsiella pneumoniae [K. pneumoniae] as the cause of diseases classified elsewhere; N40.1 Benign prostatic hyperplasia with lower urinary tract symptoms; M10.9 Gout, unspecified
CPT/HCPCS: 36415; 80048; 85027

== ENCOUNTER → 2024-09-05 09:50 | Outpatient (REF) | payer OTHER, SELFPAY ==
[2024-09-05 11:58] LABS: Urine Albumin 2+ (Neg - Trace); Urine Bilirubin Negative (Negative); Urine Character Slightly Cloudy (Clear); Urine Color Yellow; Urine Glucose Negative (Negative); Urine Ketone Negative (Negative); Urine Leukocyte 3+ (Negative); Urine Nitrite Positive (Negative); Urine Occult Blood 2+ (Negative); Urine Specific Gravity 1.015 (<1.030); Urine Urobilinogen Negative (Neg - 1+)
[2024-09-05 12:39] LABS: Urine Squamous Cell 0-2 /LPF (Few)
[2024-09-05 12:40] LABS: Urine Red Blood Cell 0-2 /HPF (0-2)
[2024-09-05 12:41] LABS: Urine Bacteria Few (Negative); Urine White Cell 21-25 /HPF (0-5)
== END ==
LOC: OLABP 09:50
PROVIDERS: ATTENDING PHYSICIAN Family Medicine
DX: G93.40 Encephalopathy, unspecified (principal); B96.4 Proteus (mirabilis) (morganii) as the cause of diseases classified elsewhere; M62.81 Muscle weakness (generalized); R26.2 Difficulty in walking, not elsewhere classified; R13.10 Dysphagia, unspecified; R33.9 Retention of urine, unspecified
CPT/HCPCS: 81003; 81015; 87086

== ENCOUNTER → 2024-09-18 11:20 | Outpatient (REF) | payer OTHER, SELFPAY ==
[2024-09-18 12:44] LABS: % Basophils 1.3 % (0-2); % Eosinophils 7.4 % (0-6); % Immature Granulocytes 0.5 % (0-0.5); % Monocytes 9.7 % (1.7-9.3); % Neutrophils 62.1 % (42.2-75.2); Absolute Basophils 0.1 10^3/uL (0-0.2); Absolute Eosinophils 0.5 10^3/uL (0-0.7); Absolute Lymphocytes 1.2 10^3/uL (1.2-3.4); Absolute Monocytes 0.6 10^3/uL (0.1-0.6); Absolute Neutrophils 3.9 10^3/uL (1.4-6.5); Hematocrit 37.5 % (39.0-52.0); Hemoglobin 12.4 g/dL (13.0-18.0); Mean Corp Hgb Conc. 33.1 g/dL (33.0-37.0); Mean Corpuscular Hgb 34.3 pg (27.0-31.0); Mean Corpuscular Volume 103.6 fL (80.0-94.0); Nucleated Red Blood Cells % 0 % (-); Platelet Count 137 10^3/uL (130-400); Red Blood Cell Count 3.62 10^6/uL (4.70-6.10); Red Cell Dist. Width 14.8 % (11.5-14.5); White Blood Cell Count 6.2 10^3/uL (4.8-10.8)
[2024-09-18 13:06] LABS: ALT (SGPT) 18 U/L (0-50); AST (SGOT) 24 U/L (17-59); Albumin 3.3 g/dl (3.5-5.0); Alkaline Phosphatase 50 U/L (38-126); Blood Urea Nitrogen 31 mg/dl (9-20); Calcium 9.6 mg/dl (8.4-10.2); Carbon Dioxide 25 mmol/L (22-30); Chloride 112 mmol/L (98-107); Glucose 101 mg/dl (70-99); Potassium 4.6 mmol/L (3.5-5.1); Sodium 143 mmol/L (135-145); Total Bilirubin 0.5 mg/dl (0.2-1.3); Total Protein 6.1 g/dl (6.3-8.2); eGFR 48.04
== END ==
LOC: OLABP 11:20
PROVIDERS: ATTENDING PHYSICIAN Family Medicine
DX: G93.40 Encephalopathy, unspecified (principal); B96.4 Proteus (mirabilis) (morganii) as the cause of diseases classified elsewhere; M62.81 Muscle weakness (generalized); R26.2 Difficulty in walking, not elsewhere classified; R13.10 Dysphagia, unspecified; Z43.2 Encounter for attention to ileostomy; N40.1 Benign prostatic hyperplasia with lower urinary tract symptoms; R33.9 Retention of urine, unspecified; I25.10 Atherosclerotic heart disease of native coronary artery without angina pectoris; N18.30 Chronic kidney disease, stage 3 unspecified; K50.90 Crohn's disease, unspecified, without complications; F03.90 Unspecified dementia, unspecified severity, without behavioral disturbance, psychotic disturbance, mood disturbance, and anxiety; Z85.46 Personal history of malignant neoplasm of prostate; A41.9 Sepsis, unspecified organism; J18.9 Pneumonia, unspecified organism; B96.1 Klebsiella pneumoniae [K. pneumoniae] as the cause of diseases classified elsewhere; M10.9 Gout, unspecified
CPT/HCPCS: 36415; 80053; 85025

== ENCOUNTER → 2024-11-10 15:11 | Outpatient (REF) | payer OTHER, SELFPAY ==
[2024-11-10 16:31] LABS: Urine Albumin 2+ (Neg - Trace); Urine Bilirubin Negative (Negative); Urine Character Cloudy (Clear); Urine Color Yellow; Urine Glucose Negative (Negative); Urine Ketone Negative (Negative); Urine Leukocyte 3+ (Negative); Urine Nitrite Positive (Negative); Urine Occult Blood 4+ (Negative); Urine Urobilinogen Negative (Neg - 1+); Urine pH 6.5 (5.0-9.0)
[2024-11-10 18:00] LABS: Urine Squamous Cell 0-2 /LPF (Few); Urine White Cell 50-60 /HPF (0-5)
[2024-11-10 18:01] LABS: Urine Bacteria Few (Negative)
== END ==
LOC: OLABP 15:11
PROVIDERS: ATTENDING PHYSICIAN Family Medicine
DX: N40.1 Benign prostatic hyperplasia with lower urinary tract symptoms (principal); R26.2 Difficulty in walking, not elsewhere classified; R13.10 Dysphagia, unspecified; B96.4 Proteus (mirabilis) (morganii) as the cause of diseases classified elsewhere; G93.40 Encephalopathy, unspecified; M62.81 Muscle weakness (generalized); R33.9 Retention of urine, unspecified; I25.10 Atherosclerotic heart disease of native coronary artery without angina pectoris; N18.30 Chronic kidney disease, stage 3 unspecified; K50.90 Crohn's disease, unspecified, without complications; Z85.46 Personal history of malignant neoplasm of prostate; F03.90 Unspecified dementia, unspecified severity, without behavioral disturbance, psychotic disturbance, mood disturbance, and anxiety; A41.9 Sepsis, unspecified organism; J18.9 Pneumonia, unspecified organism; B96.1 Klebsiella pneumoniae [K. pneumoniae] as the cause of diseases classified elsewhere; M10.9 Gout, unspecified
CPT/HCPCS: 81003; 81015; 87086

== ENCOUNTER → 2024-12-16 11:26 | Outpatient (REF) | payer OTHER, SELFPAY ==
[2024-12-16 12:21] LABS: Hematocrit 39.4 % (39.0-52.0); Hemoglobin 13.0 g/dL (13.0-18.0); Mean Corp Hgb Conc. 33.0 g/dL (33.0-37.0); Mean Corpuscular Volume 103.1 fL (80.0-94.0); Nucleated Red Blood Cells % 0 % (-); Platelet Count 163 10^3/uL (130-400); Red Cell Dist. Width 14.5 % (11.5-14.5)
[2024-12-16 12:36] LABS: ALT (SGPT) 19 U/L (0-50); AST (SGOT) 24 U/L (17-59); Albumin 3.9 g/dl (3.5-5.0); Alkaline Phosphatase 71 U/L (38-126); Blood Urea Nitrogen 30 mg/dl (9-20); Calcium 9.5 mg/dl (8.4-10.2); Carbon Dioxide 25 mmol/L (22-30); Chloride 109 mmol/L (98-107); Glucose 97 mg/dl (70-99); Potassium 4.2 mmol/L (3.5-5.1); Sodium 139 mmol/L (135-145); Total Protein 7.1 g/dl (6.3-8.2); eGFR 48.04
== END ==
LOC: OLABPG 11:26
PROVIDERS: ATTENDING PHYSICIAN Family Medicine
DX: R26.2 Difficulty in walking, not elsewhere classified (principal); B96.4 Proteus (mirabilis) (morganii) as the cause of diseases classified elsewhere; G93.40 Encephalopathy, unspecified; M62.81 Muscle weakness (generalized); R13.10 Dysphagia, unspecified; Z43.2 Encounter for attention to ileostomy; N40.1 Benign prostatic hyperplasia with lower urinary tract symptoms; R33.9 Retention of urine, unspecified; I25.10 Atherosclerotic heart disease of native coronary artery without angina pectoris; N18.30 Chronic kidney disease, stage 3 unspecified; Z85.46 Personal history of malignant neoplasm of prostate; K50.90 Crohn's disease, unspecified, without complications; F03.90 Unspecified dementia, unspecified severity, without behavioral disturbance, psychotic disturbance, mood disturbance, and anxiety; A41.9 Sepsis, unspecified organism; J18.9 Pneumonia, unspecified organism; B96.1 Klebsiella pneumoniae [K. pneumoniae] as the cause of diseases classified elsewhere; M10.9 Gout, unspecified
CPT/HCPCS: 36415; 80053; 85025